=== PATIENT | female | born 1990 | race Caucasian/White ===

== ENCOUNTER 2022-01-02 16:00 | Outpatient (RCR) | payer OTHER, SELFPAY | END 2022-01-02 16:05 | disposition home or self-care (01) | LOC: PT 16:00 | PROVIDERS: PCP Family Medicine; Visit Provider Physician Assistant | DX: M43.10 Spondylolisthesis, site unspecified (principal); M54.50 Low back pain, unspecified | CPT/HCPCS: 97010; 97014; 97033; 97110; 97140; 97163; 97164; G0283 ==

== ENCOUNTER 2022-04-23 10:43 | Emergency (ER) | payer OTHER, SELFPAY ==
[2022-04-23 11:35] VITALS: BP 121/74; PULSE 84; RESP 20; TEMP 37; O2SAT 97; BMI 30.1
--- NOTE | 2022-04-23 11:49 | EXP.UTC ---
Discharge Plan Disposition Patient Disposition: Home, Self-Care Condition: Good Prescriptions Prescriptions: New tthuhopzvwkzycz-eojglbgcu-TD [Bromfed DM] 2-30-10 mg/5 mL Syrup 10 ml PO Q4H PRN (Reason: Cough) Qty: 240 0RF ondansetron 4 mg tablet,disintegrating 4 mg PO Q8H PRN (Reason: nausea and vomiting) Qty: 10 0RF oseltamivir [Tamiflu] 75 mg capsule 75 mg PO BID Qty: 10 0RF No Action azithromycin [Zithromax] 250 MG tablet 250 mg PO UD DOSE PK Qty: 6 0RF Rx Instructions: Take two (2) tablets today, then one (1) tablet days #2 thru #5 Referrals Follow up/Referrals: Geovanna Camejo [Primary Care Provider] - See instructions Activity Restrictions/Add. Instructions Additional Instructions/Restrictions: Lots of rest Increase Fluids water, Gatorade, powerade, pedialyte,if infant/toddler/child Alternate Tylenol and / or ibuprofen as discussed for fever, aches, chills Follow up IMMEDIATELY with your family doctor for new or worsening Symptoms OR no noticeable improvement over the next 48-72 hours, 911 for difficulty or breathing You or your child area contagious until no fever, aches, chills for 24 hours with medication for symptoms Help Prevent the spread of influenza: ?Wash your hands often. Use soap and water. Wash your hands after you use the bathroom, change a child's diapers, or sneeze. Wash your hands before you prepare or eat food. Use gel hand cleanser that has 60% alcohol, when soap and water are not available. Do not touch your eyes, nose, or mouth unless you have washed your hands first. Cover your mouth when you sneeze or cough. Cough into a tissue or the bend of your arm. If you use a tissue, throw it away immediately and wash your hands. Clean shared items with a germ-killing cleaner and trimmer. Clean table surfaces, doorknobs, and light switches. Do not share towels, silverware, and dishes with people who are sick. Wash bed sheets, towels, silverware, and dishes with soap and water. Wear a mask over your mouth and nose if you are sick. The face mask may help protect others from becoming infected with the flu. Wear the mask when in common areas of your home or if you seek care with a healthcare provider. Stay away from others if you are sick. Stay at home until 24 hours after your fever and symptoms are gone. Clinical Impressions Clinical Impression: Viral syndrome Instructions Patient Instructions: DI for Influenza -- Adult, DI for Viral Syndrome Discharge ED Provider: Annette Jason [facility] [place] H[place] General Stated complaint: sore throat, body aches, fever, vomiting Time Seen by Provider: 04/23/22 11:49 History of Present Illness Provider Complaint: Patient states that she had to take care of two of her kids last week that had the flu States that she started yesterday with cough, congestion and body aches, chills, and feeling fatigued and had a little N/V States that today she is still feeling bad feeling achy all over so she came in to get checked out Related Data Previous Rx's Medication Instructions Recorded azithromycin 250 mg tablet 250 mg PO UD DOSE PK #6 tabs 08/16/18 (Zithromax) kskcopnzuombjsy-yzzzviryrkvyowm-[place] 10 ml PO Q4H PRN Cough #240 mL 04/23/22 2 mg-30 mg-10 mg/5 mL oral syrup (Bromfed DM) ondansetron 4 mg disintegrating 4 mg PO Q8H PRN nausea and 04/23/22 tablet vomiting #10 tabs oseltamivir 75 mg capsule (Tamiflu) 75 mg PO BID #10 caps 04/23/22 Allergies Allergy/AdvReac Type Severity Reaction Status Date / Time No Known Allergies Allergy Verified 08/16/18 14:55 [facility] Medical History (Updated 04/23/22 @ 12:16 by Annette Jason, SPECTRAL SCIENTIST) Anxiety Asthma Migraine Surgical History (Updated 04/23/22 @ 11:55 by Gisel Sparks RN) History of tubal ligation Social History (Updated 04/23/22 @ 11:58 by
[2022-04-23 12:10] VITALS: BP 121/74; PULSE 84; RESP 20; TEMP 37; O2SAT 97
== END 2022-04-23 12:27 | disposition home or self-care (01) ==
PROVIDERS: Emergency Provider Nurse Practitioner; PCP Family Medicine
DX: J02.9 Acute pharyngitis, unspecified (principal); R50.9 Fever, unspecified; M79.10 Myalgia, unspecified site; R11.2 Nausea with vomiting, unspecified; R05.9 Cough, unspecified; R53.82 Chronic fatigue, unspecified; G43.909 Migraine, unspecified, not intractable, without status migrainosus; J45.909 Unspecified asthma, uncomplicated; F41.9 Anxiety disorder, unspecified; Z79.899 Other long term (current) drug therapy
CPT/HCPCS: 99212; G0463

== ENCOUNTER 2022-09-21 07:52 | Emergency (ER) | payer OTHER, SELFPAY ==
[2022-09-21] VITALS (9 sets, daily range): BP systolic 94–141; BP diastolic 61–99; PULSE 60–99; RESP 16–20; TEMP 36.8; O2SAT 97–98; BMI 28.8
--- NOTE | 2022-09-21 08:01 | PC.NURSE ---
dr gupta at bedside
--- NOTE | 2022-09-21 08:04 | CT_ITS ---
PROCEDURE INFORMATION: Exam: CT Abdomen And Pelvis Without Contrast Exam date and time: 09/21/2022 8:18 AM Age: 32 years old Clinical indication: Abdominal pain; Flank; Right; Additional info: RT flank pain TECHNIQUE: Imaging protocol: Computed tomography of the abdomen and pelvis without contrast. Radiation optimization: All CT scans at this facility use at least one of these dose optimization techniques: automated exposure control; mA and/or kV adjustment per patient size (includes targeted exams where dose is matched to clinical indication); or iterative reconstruction. REPORTING DATA: Count of CT and Cardiac NM exams in prior 12 months: This patient has received 0 known CTs and 0 known cardiac nuclear medicine studies in the 12 months prior to the current study. COMPARISON: No relevant prior studies available. FINDINGS: Lungs: No consolidation, lung nodules, or pleural effusions. Liver: Normal. No mass. Gallbladder and bile ducts: Calcified gallstones up to 1.4 cm in diameter. No gallbladder wall thickening, luminal distention, or biliary ductal dilatation. Pancreas: Normal. No ductal dilation. Spleen: Normal. No splenomegaly. Adrenal glands: Normal. No mass. Kidneys and ureters: 3-4 mm stone in the distal right ureter near the ureterovesical junction causes mild hydroureteronephrosis. No other right kidney stones. Nonobstructing 2 mm stone in the lower pole left kidney. No solid renal masses. Stomach and bowel: Normal. No intestinal masses, bowel wall thickening, or abnormal dilatation. Appendix: No evidence of appendicitis. Intraperitoneal space: No free air. No masses or significant fluid collection. Vasculature: No abdominal aortic aneurysm. No other significant abnormalities. Lymph nodes: No enlarged lymph nodes. Urinary bladder: No significant wall thickening. Reproductive: No abnormalities as visualized. Bones/joints: No acute fracture or bone lesions. Soft tissues: No masses or other abnormalities. IMPRESSION: 1. Obstructing 3 mm stone in the distal right ureter within 2 cm of the ureterovesical junction. 2. 2 mm nonobstructing stone in the lower pole left kidney. 3. Cholelithiasis. No biliary ductal dilatation. 4. No other acute abnormalities in the abdomen and pelvis.
--- NOTE | 2022-09-21 08:06 | HMH.EDABDPAI ---
Discharge Plan Disposition Patient Disposition: Home, Self-Care Prescriptions Prescriptions: New ketorolac 10 mg Tablet 10 mg PO Q6H PRN (Reason: pain.) Qty: 8 0RF dicyclomine 10 mg capsule 10 mg PO QID PRN (Reason: pain) Qty: 20 0RF Referrals Follow up/Referrals: Geovanna Camejo [Primary Care Provider] - See instructions Joey Aguilar MD [Staff Physician] - 7-14 days (3 mm distal right ureteral stone) Activity Restrictions/Add. Instructions Additional Instructions/Restrictions: Your work-up today showed that you have a kidney stone in your ureter on the right side. This kidney stone is causing your your pain. Incidentally, you also have gallstones. The gallbladder does not seem inflamed and the stones do not seem to be causing you any symptoms at this time. 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 You have also been given a urine strainer which you should use every time you void. Please take the stone to your primary care physician for lab analysis once you have passed it. Return immediately to the emergency department if you develop a fever or if your symptoms worsen in any way. You may follow-up with Dr. Aguilar, a urologist, if your symptoms do not improve within the next few days. You have a very high likelihood of passing the stone without any intervention. It is 3 mm in size. Clinical Impressions Clinical Impression: Ureterolithiasis Cholelithiasis Qualifiers: Cholelithiasis location: gallbladder Cholecystitis presence: without cholecystitis Biliary obstruction: without biliary obstruction Qualified Code(s): K80.20 - Calculus of gallbladder without cholecystitis without obstruction Instructions Patient Instructions: DI for Kidney Stones Discharge ED Provider: Hellen Daniel Abdominal Pain HPI General Chief Complaint: Abdominal Pain Stated Complaint: Abd pain on right side and back, Nausea,Vomitting Time Seen by Provider: 09/21/22 08:04 Mode of Arrival: Ambulatory Limitations: No Limitations Description of Symptoms (Recalled from ER Triage Doc. by RN): PT REPORTS RIGHT SIDED BACK THAT RADIATES TO UMBILICUS. STARTED THIS AM. WOKE UP AND WAS ABLE TO VOID, UNABLE TO VOID AT THIS TIME. PAIN STARTED AFTER VOIDING THIS AM History of Present Illness HPI narrative: The patient presents to the emergency department complaining of right flank pain with the urge of urination and 1 episode of vomiting. This was sudden onset. The patient has no history of kidney stones. She has had a tubal ligation 9 years ago. MD complaint: flank pain Related Data Previous Rx's Medication Instructions Recorded dicyclomine 10 mg capsule 10 mg PO QID PRN pain #20 caps 09/21/22 ketorolac 10 mg tablet 10 mg PO Q6H PRN pain. #8 tabs 09/21/22 Allergies Allergy/AdvReac Type Severity Reaction Status Date / Time No Known Allergies [facility]18 [facility] Disclaimer[facility] The information contained in this section may have been updated after the patient was seen, as this information can be updated by other users. Medical History (Updated 09/21/22 @ 11:23 by Hellen Daniel MD) Anxiety Asthma Migraine Surgical History (Updated 04/23/22 @ 11:55 by Gisel Sparks RN) History of tubal ligation Social History (Updated 04/23/22 @ 11:58 by Gisel Sparks RN) Smoking Status: Former smoker alcohol intake: never current occupational status: other Travel in the last 8 weeks: None ROS Obtained: Yes All systems reviewed & no additional complaints except as documented Physical Exam General General appearance: alert Head Head exam: atraumatic Eye Eye exam: Present normal appearance; Absent scleral icterus or jaundice ENT ENT exam: Present normal exam Neck Neck exam: Present normal inspection and full ROM; Absent tenderness or meningismus Chest Chest inspection: Present normal inspection and symmetric chest wall rise; Absent tenderness Respirator
--- NOTE | 2022-09-21 08:07 | PC.NURSE ---
RADIOLOGY NOTICED OF CT SCAN
--- NOTE | 2022-09-21 08:08 | PC.NURSE ---
PT ASSISTED TO BATHROOM
[2022-09-21 08:10] LABS: Basophils # 0.1 K/mm3 (0-0.2); Basophils % 0.7 % (0.1-2.0); Eosinophils # 0.3 K/mm3 (0.0-0.4); Hematocrit 41.8 % (37.0-47.0); Hemoglobin 13.7 g/dL (12.2-16.2); Lymphocytes # 2.6 K/mm3 (0.7-4.5); Lymphocytes % 28.5 % (10-50); Mean Corpuscular HGB Conc 32.7 g/dL (31.8-35.4); Mean Corpuscular Hemoglobin 29.2 pg (27.0-31.2); Mean Corpuscular Volume 89.4 fl (81-99); Mean Platelet Volume 7.3 fl (7.4-10.4); Monocytes # 0.3 K/mm3 (0.1-1.0); Monocytes % 3.4 % (1.7-9.3); Neutrophils % 64.4 % (37.0-80.0); Platelet Count 384 K/mm3 (142-424); Red Blood Count 4.67 M/mm3 (4.20-5.40); Red Cell Distribution Width 13.4 % (11.5-17.5); White Blood Count 9.3 K/mm3 (4.8-10.8)
[2022-09-21 08:12] LABS: Chloride 105 mmol/L (98-107); Sodium 140 mmol/L (136-145)
[2022-09-21 08:13] LABS: Potassium 4.1 mmoL/L (3.5-5.1)
[2022-09-21 08:14] LABS: Microscopic, Urine URINE MICROSCOPIC (MICROSCOPIC)
[2022-09-21 08:15] LABS: Alanine Aminotransferase 19 U/L (12-78); Albumin Level 4.7 g/dl (3.5-5.0); Albumin/Globulin Ratio 1.4 (1.1-1.8); Alkaline Phosphatase 75 U/L (38-126); Anion Gap 12.1 mEq/L (5-15); Aspartate Amino Transferase 33 U/L (14-36); Bilirubin,Total 0.4 mg/dl (0.2-1.3); Blood Urea Nitrogen 18 mg/dl (7-17); Calcium 9.2 mg/dl (8.4-10.2); Carbon Dioxide 27 mmol/L (22.0-30.0); Creatinine Clearance Estimated 106 mL/min (50-200); Estimated Glomerular Filt Rate 72 ml/min (>60); GFR (African American) 87 ML/MIN (>60); Globulin 3.3 g/dL (1.3-3.2); Glucose 123 mg/dl (74-100); Lipase 141 U/L (23-300)
--- NOTE | 2022-09-21 08:15 | PC.NURSE ---
PT TO CT
[2022-09-21 08:16] LABS: Appearance,Urine SL CLOUDY (Clear); Bilirubin,Urine Negative (Negative); Blood, Urine 3+ (Negative); Color,Urine YELLOW (Yellow); Glucose,Urine (UA) Negative (Negative); Ketones,Urine Negative (Negative); Leukocyte Esterase,Urine TRACE (Negative); Nitrate,Urine Negative (Negative); PH,Urine 5.5 (5.0-8.5); Protein,Urine TRACE (Negative); Specific Gravity, Urine >= 1.030 (1.005-1.030); Urobilinogen,Urine 0.2 EU/dl (0.2)
--- NOTE | 2022-09-21 08:22 | PC.NURSE ---
PT RETURNED FROM CT
[2022-09-21 08:26] LABS: Bacteria,Urine Trace /lpf; RBC,Urine Occasional #/hpf (0-3); WBC,Urine Occasional #/hpf (0-3)
--- NOTE | 2022-09-21 08:29 | PC.NURSE ---
EL Perez rounded on patient, call light w/in reach. warm blankets given.
--- NOTE | 2022-09-21 08:46 | PC.NURSE ---
DR CARABALLO AT BEDSIDE TO REEVALUATE PT
--- NOTE | 2022-09-21 09:53 | PC.NURSE ---
waiting data center consultant back from rad staff, states will check on status of pt ct result
--- NOTE | 2022-09-21 10:01 | PC.NURSE ---
rad staff reports scan is assigned but she chatted with vrad staff who report turn around time is 172 minutes. ER MD is aware.
--- NOTE | 2022-09-21 10:01 | PC.NURSE ---
DR CARABALLO AT BEDSIDE TO UPDATE PT
--- NOTE | 2022-09-21 10:09 | PC.NURSE ---
Rounded on patient; call light within reach
--- NOTE | 2022-09-21 11:12 | PC.NURSE ---
DR CARABALLO AT BEDSIDE TO UPDATE PT
== END 2022-09-21 11:38 | disposition home or self-care (01) ==
PROVIDERS: Emergency Provider Emergency Medicine; PCP Family Medicine
DX: K80.20 Calculus of gallbladder without cholecystitis without obstruction (principal); N20.2 Calculus of kidney with calculus of ureter
CPT/HCPCS: 74176; 80053; 81001; 83690; 85025; 96372; 96374; 96375; 99285; J2405

== ENCOUNTER 2023-12-10 11:00 | Outpatient (CLI) | payer OTHER, SELFPAY ==
[2023-12-11 08:13] LABS: Basophils # 0.1 K/mm3 (0-0.2); Basophils % 1.1 % (0.1-2.0); Eosinophils # 0.3 K/mm3 (0.0-0.4); Eosinophils % 3.4 % (0.1-12.0); Hematocrit 40.2 % (37.0-47.0); Hemoglobin 12.5 g/dL (12.2-16.2); Lymphocytes # 3.1 K/mm3 (0.7-4.5); Lymphocytes % 30.3 % (10-50); Mean Corpuscular HGB Conc 31.2 g/dL (31.8-35.4); Mean Corpuscular Hemoglobin 29.7 pg (27.0-31.2); Mean Corpuscular Volume 95.3 fl (81-99); Mean Platelet Volume 9.9 fl (7.4-10.4); Monocytes # 0.5 K/mm3 (0.1-1.0); Neutrophils # 6.1 K/mm3 (1.8-7.8); Neutrophils % 60.2 % (37.0-80.0); Platelet Count 401 K/mm3 (142-424); Red Blood Count 4.22 M/mm3 (4.20-5.40); Red Cell Distribution Width 13.7 % (11.5-17.5); White Blood Count 10.1 K/mm3 (4.8-10.8)
[2023-12-11 09:04] LABS: Alanine Aminotransferase 25 U/L (12-78); Albumin Level 4.9 g/dl (3.5-5.0); Albumin/Globulin Ratio 1.8 (1.1-1.8); Alkaline Phosphatase 70 U/L (38-126); Anion Gap 15.3 mEq/L (5-15); Aspartate Amino Transferase 37 U/L (14-36); Bilirubin,Indirect 0.2 mg/dL (0.0-0.9); Bilirubin,Total 0.2 mg/dl (0.2-1.3); Bilirubin,Unconjugated 0.3 mg/dL (0.0-1.1); Blood Urea Nitrogen 13 mg/dl (7-17); Calcium 9.5 mg/dl (8.4-10.2); Carbon Dioxide 26 mmol/L (22.0-30.0); Chloride 104 mmol/L (98-107); Chol/HDL Ratio 3.3 (1-3.5); Cholesterol 176 mg/dl (140-200); Estimated Glomerular Filt Rate 71 ml/min (>60); GFR (African American) 86 ML/MIN (>60); Globulin 2.8 g/dL (1.3-3.2); HDL Cholesterol 53 mg/dl (40-60); Potassium 4.3 mmoL/L (3.5-5.1); Sodium 141 mmol/L (136-145); Total Protein,Serum 7.7 g/dl (6.3-8.2); Triglycerides 156 mg/dl (30-150); VLDL Cholesterol 31 mg/dL (0-40)
[2023-12-11 09:08] LABS: Glucose 46 mg/dl (74-100)
[2023-12-11 09:15] LABS: Direct LDL Cholesterol 97.77 mg/dL (100-129)
[2023-12-11 09:33] LABS: Thyroid Stimulating Hormone 1.83 uIU/mL (0.465-4.68)
[2023-12-11 09:54] LABS: Vitamin B12 > 1000 pg/mL (239-931)
== END 2023-12-10 23:59 | disposition home or self-care (01) ==
LOC: LAB.DROPOF 12-15 11:01
PROVIDERS: PCP Family Medicine; Visit Provider Family Medicine
DX: J45.901 Unspecified asthma with (acute) exacerbation (principal)
CPT/HCPCS: 80050; 80053; 80061; 80076; 82248; 82306; 82607; 84443; 85025

== ENCOUNTER 2024-01-13 14:00 | Outpatient (CLI) | payer OTHER, SELFPAY | END 2024-01-13 23:59 | disposition home or self-care (01) | LOC: LAB.DROPOF 01-14 14:11 | PROVIDERS: PCP Nurse Practitioner Family; Visit Provider Nurse Practitioner Family | DX: N39.0 Urinary tract infection, site not specified (principal) | CPT/HCPCS: 87086 ==

== ENCOUNTER 2024-06-15 18:38 | Outpatient (CLI) | payer OTHER, SELFPAY | END 2024-06-15 23:59 | disposition home or self-care (01) | LOC: LAB.DROPOF 18:39 | PROVIDERS: PCP Nurse Practitioner Family; Visit Provider Nurse Practitioner Family | DX: R35.0 Frequency of micturition (principal) | CPT/HCPCS: 87086 ==

== ENCOUNTER 2024-09-05 17:44 | Emergency (ER) | payer OTHER, SELFPAY ==
[2024-09-05 17:45] VITALS: BP 128/78; PULSE 96; RESP 19; TEMP 36.8; O2SAT 98; BMI 27.4
[2024-09-05 18:00] VITALS: BP 128/78; PULSE 101; O2SAT 97
[2024-09-05] MEDS: LIDOCAINE 1% 5ML PF VIAL 5 ML IJ (18:09)
[2024-09-05 18:30] VITALS: BP 126/85
--- NOTE | 2024-09-05 19:04 | HMH.EDGENADL ---
Discharge Plan Disposition Patient Disposition: Home, Self-Care Condition: Good Prescriptions Prescriptions: No Action albuterol sulfate 90 mcg/actuation aero powdr breath act w/sensor 2 inh inhalation Q6H PRN (Reason: sob) Qty: 1 2RF Referrals Follow up/Referrals: Geovanna Lynch MD [Primary Care Provider] - See instructions Activity Restrictions/Add. Instructions Additional Instructions/Restrictions: You were seen for a finger laceration. Have your sutures removed in 10 days. Return to the ED if you have any redness or discharge. Clinical Impressions Clinical Impression: Finger laceration Instructions Patient Instructions: DI for Laceration Repair Print Language Print Language: Barbadian Discharge ED Provider: Michael Riddle General Adult HPI <JOESPH Posada - Last Filed: 09/05/24 19:22> General Chief complaint: Wound/Laceration Stated complaint: AO 4-6 left middle finger cut with slicer Time Seen by Provider: 09/05/24 17:47 Mode of Arrival: Family Vehicle Source of Information: Patient and Medical Record Description of Symptoms (Recalled from ER Triage Doc. by RN): Pt presents to ER with small lacertation to tip of left middle finger from a slicer. States she was cooking dinner and slicing ingredients when she caught the tip of her finger. She washed the site, applied a pressure bandage but it has continued to bleed steadily. She is UTD with TDAP. History of Present Illness HPI narrative: Patient presents complaining of a laceration to her left third finger. She reports that she was using a mandolin slicer to cut some carrots and cut her finger. She reports that there is a laceration that will not stop bleeding despite pressure and bandaging. Tetanus UTD complaint: laceration Onset (ago): hour(s) (1630) Location: left and upper extremity Radiation: non-radiation Severity: mild Consistency: constant Relieving factors: none Exacerbating factors: none Associated symptoms: negative fever/chills or nausea/vomiting Related Data Previous Rx's ?Medication ?Instructions ?Recorded albuterol sulfate 90 mcg/actuation 2 inh inhalation Q6H PRN sob #1 ea 08/23/24 breath activated powder inhaler,sensor Allergies Allergy/AdvReac Type Severity Reaction Status Date / Time No Known Allergies Allergy Verified 06/15/24 15:10 PFSH <JOESPH Posada - Last Filed: 09/05/24 19:22> [facility] Disclaimer: The information contained in this section may have been updated after the patient was seen, as this information can be updated by other users. Medical History (Updated 09/05/24 @ 19:04 by JOESPH Posada) Anxiety Migraine Asthma Surgical History History of tubal ligation Social History Smoking Status: Current every day smoker alcohol intake: never current occupational status: other Travel in the last 8 weeks: None Have you lived/traveled outside [place] in past 30 days?: No Contact w/someone who lives/traveled outside US past 30 days?: No Exposure to someone with infectious disease in past 14 days?: No Do you have a fever (greater than 100.4 F or 38 C)?: No Have you tested positive for COVID-19: No Exposed to someone with COVID-19 in past 14 days?: No Do you have a sore throat?: No Do you have a cough?: No Do you have any weakness?: No Do you have any diarrhea?: No Are you experiencing any unusual bleeding?: No Do you have any muscle aches/pain?: No Do you have any abdominal pain?: No Are you experiencing loss of taste or smell?: No Other Medical History Have you received the Flu Vaccine for this season: No Have you received the Pneumonia Vaccine: No <JOESPH Posada - Last Filed: 09/05/24 19:22> ROS Obtained: Yes Systems reviewed as appropriate & no additional complaints except as documented Physical Exam <JOESPH Posada - Last Filed: 09/05/24 19:22> General General appearance: alert and in no apparent distress Head Head exam: atraumatic and normocephalic Eye Eye exam: Present normal appearance and EOMI Chest Chest inspection: Present symmetric chest wall rise Respiratory Respiratory exam: Present normal lung sounds bilaterally; Absent wheezes or stridor Cardiovascular Cardiovascular exam: Present regular rate and normal rhythm; Absent systolic murmur Extremities Exam Extremities exam: Present full ROM Neurological Exam Neurological exam: Present alert and oriented X3 Psychiatric Psychiatric exam: Present normal affect and normal mood Skin Skin exam: Present warm, dry and other (1 cm curved laceration to the left 3rd fingerpad ) Medical Decision Making <JOESPH Posada - Last Filed: 09/05/24 19:22> Medical Records Screening: Per USPSTF and CDC recommendations, given the prevalence of disease in our region, it is our hospital?s policy to screen for HIV and viral Hepatitis for all patients aged 18 and over and those with ongoing risk factors. Marshal Inquiry Pt receiving controlled substance: No Vital Signs: 09/05/24 17:45 09/05/24 18:00 09/05/24 18:30 Temperature 98.2 F Temperature Source Oral Pulse Rate 101 H Pulse Rate [Right] 96 H Respiratory Rate 19 Blood Pressure 128/78 126/85 Blood Pressure [Right Arm] 128/78 Blood Pressure Mean 94 93 Blood Pressure Mean [Right Arm] 94 Blood Pressure Source Blood Pressure Source [Right Arm] Automatic Cuff Blood Pressure Position 02 Sat by Pulse Oximetry 98 97 Oxygen Delivery Method Room Air Room Air 09/05/24 19:05 Temperature 98.2 F Temperature Source Oral Pulse Rate 100 H Pulse Rate [Right] Respiratory Rate 20 Blood Pressure 139/87 Blood Pressure [Right Arm] Blood Pressure Mean Blood Pressure Mean [Right Arm] Blood Pressure Source Automatic Cuff Blood Pressure Source [Right Arm] Blood Pressure Position Sitting 02 Sat by Pulse Oximetry Oxygen Delivery Method Room Air Orders (Tests/Meds): ED MEDICATIONS Discontinued Medications Generic Name Dose Route Start Last Admin Trade Name Freq PRN Reason Stop Dose Admin Lidocaine HCl 5 ml 09/05/24 17:56 09/05/24 18:09 Lidocaine 1% 5ml Pf Vial IJ 09/05/24 17:57 5 ml ONCE ONE Administration Medical Decision Narrative: In summary patient is a 34-year-old who presents the emergency department for evaluation of finger laceration. Patient is hemodynamically upon arrival, afebrile. 1 cm laceration to the left third finger, active bleeding. Bleeding controlled with a finger soaked using lidocaine with epinephrine. Wound was cleaned and irrigated and closed with 5 sutures. Follow-up if symptoms return, have PCP remove sutures. <Michael Riddle MD - Last Filed: 09/05/24 20:44> Vital Signs: 09/05/24 17:45 09/05/24 18:00 09/05/24 18:30 Temperature 98.2 F Temperature Source Oral Pulse Rate 101 H Pulse Rate [Right] 96 H Respiratory Rate 19 Blood Pressure 128/78 126/85 Blood Pressure [Right Arm] 128/78 Blood Pressure Mean 94 93 Blood Pressure Mean [Right Arm] 94 Blood Pressure Source Blood Pressure Source [Right Arm] Automatic Cuff Blood Pressure Position 02 Sat by Pulse Oximetry 98 97 Oxygen Delivery Method Room Air Room Air 09/05/24 19:05 Temperature 98.2 F Temperature Source Oral Pulse Rate 100 H Pulse Rate [Right] Respiratory Rate 20 Blood Pressure 139/87 Blood Pressure [Right Arm] Blood Pressure Mean Blood Pressure Mean [Right Arm] Blood Pressure Source Automatic Cuff Blood Pressure Source [Right Arm] Blood Pressure Position Sitting 02 Sat by Pulse Oximetry Oxygen Delivery Method Room Air Orders (Tests/Meds): ED MEDICATIONS Discontinued Medications Generic Name Dose Route Start Last Admin Trade Name Nuvia PRN Reason Stop Dose Admin Lidocaine HCl 5 ml 09/05/24 17:56 09/05/24 18:09 Lidocaine 1% 5ml Pf Vial IJ 09/05/24 17:57 5 ml ONCE ONE Administration Medical Decision Narrative: In summary patient is a 34-year-old who presents the emergency department for evaluation of finger laceration. Patient is hemodynamically upon arrival, afebrile. 1 cm laceration to the left third finger, active bleeding. Bleeding controlled with a finger soaked using lidocaine with epinephrine. Wound was cleaned and irrigated and closed with 5 sutures. Follow-up if symptoms return, have PCP remove sutures. I was consulted by the SUN[facility], and we discussed the complexity of the problems being addressed. I approved the treatment and management plan for this patient's care in the Emergency Department, thus performing a substantive portion of the medical decision making. Michael Riddle MD Procedures <JOESPH Posada - Last Filed: 09/05/24 19:22> Laceration Laceration 1: Site: finger Side (If applicable): left Size (cm): 1 Description: flap Depth: simple, single layer Local Anesthetic: lidocaine 1% (digital block ) and with epi (soak) Amount of anesthesia used (mL): 1 Pre-repair: irrigated extensively Skin layer closed with: nylon Size (cm): 5-0 Number of sutures: 4 Technique: simple, interrupted Critical Care <JOESPH Posada - Last Filed: 09/05/24 19:22> Critical Care Time Critical Care Time: No
[2024-09-05 19:05] VITALS: BP 139/87; PULSE 100; RESP 20; TEMP 36.8; O2SAT 97
--- OUTSIDE RECORDS SUMMARY | 2024-09-09 20:03 | XMS_ITS | Data Portability ---
Author Organization DANDRE [facility] & SATHISH Felix ADMIN Address [address] [place] [address] Care Team Providers Care Alum Mixer Name Role Phone SHIRLEY COSME Family Medicine SHIRLEY ARREOLA Primary Care Provider [phone] Assessment No assessment recorded. Plan of Treatment Reminders Order Date Submit Date Provider Last Modified By Organization Details Last Modified Time Details Appointments OV EST 30 2024 03:30P M Shirley Arreola MD Not available Not available Not available Lab None recorded. Referral dermatolo gist referral 2023 024 [email or web address] [facility], [address] [place] [address], [id number], 03/08/2024 12:04:08 Procedures None recorded. Surgeries None recorded. Imaging None recorded. Medication Orders Bactrim DS 800 mg-160 mg tablet 2023 024 [facility] 591, [address], [address], 02/03/2024 15:41:19 mupirocin 2 % topical ointment 2023 024 [facility] 591, [address] [place] [address], [address], 02/03/2024 15:41:21 Patient TargetsNo targets recorded. Patient InstructionsNo instructions recorded. 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 [email or web address] Not Available 02/03 13:09:48 Result Notes None recorded. Procedures Surgical History Date Name Laterality Status Provider Name and Address Organization Details Recorded Time 07/03/19 22 colonoscopy completed Lila Jocelynn [place] - [facility] - [place] & [place] 11/27/2022 10:23:19 06/02/19 21 Colonoscopy completed Octavia Kassie [place] - [facility] & [place] 02/03/2024 15:13:18 06/02/19 18 Dilation and curettage completed Lila Jocelynn [place] - [facility] & [place] 11/27/2022 10:22:58 06/02/19 14 ligation of fallopian tube completed Lila Jocelynn [place] - [facility] & [place] 11/27/2022 10:22:39 06/02/19 10 LEEP completed Lila Jocelynn [place] [facility] & [place] 11/27/2022 10:22:28 Oral surgery procedure completed Lial Jocelynn [place] - [facility] - [place] & [place] 11/27/2022 10:22:17 Imaging Results Imaging Date Name Status LastModified by Organiz ation Details LastModified Time 09/21/2022 CT, abdomen + pelvis, w/o contrast completed [email or web address] Information not available 02/04/2024 13:09:48 Procedure Notes None recorded. Medical Equipment None Reported. Allergies Allergen ID Allergen Name Allergen Category Reaction Reaction Severity Criticality Documentation Date Start Date Code Code System Note Provider Name and Address Organization Details Recorded Time 36919 No known allergy (situatio n) Not available Not available Not available Not available 11/27/2022 95256 6003 SNOMED Lila Jocelynn [place], [place] - [facility] - [place] & [place] 10:19:04 No known drug allergies Medications Name Sig Start Date Stop Date Status Note LastModified by Organization Details LastModified Time amoxicillin 500 mg capsule TAKE 1 CAPSULE BY MOUTH THREE TIMES DAILY 01/31 completed Not Available Not Available Not Available sulfamethox azole 400 mg-trimetho prim 80 mg tablet 01/31 completed Not Available Not Available Not Available sulfamethox azole 800 mg-trimetho prim 160 mg tablet TAKE 1 TABLET BY MOUTH EVERY 12 HOURS FOR 10 DAYS active Not Available Not Available No t Available ketorolac 10 mg tablet TAKE 1 TABLET BY MOUTH EVERY 6 HOURS NEEDED FOR PAIN 01/31 completed Not Available Not Available Not Available oseltamivir 75 mg capsule TAKE 1 CAPSULE BY MOUTH TWICE DAILY FOR 5 DAYS 01/31 completed Not Available Not Available Not Available acyclovir 200 mg capsule TAKE 5 CAPSULES BY MOUTH PER DAY FOR 5 DAYS 01/31 completed Not Available Not Available Not Available mupirocin 2 % topical ointment APPLY OINTMENT TOPICALLY TO AFFECTED AREA THREE TIMES DAILY active Not Available Not Available No t Available bromphenira mine-pseudo ephedrine-D M 2 mg-30 mg-10 mg/5 mL oral syrup TAKE 10 ML BY MOUTH EVERY 4 HOURS NEEDED FOR COUGH 01/31 completed Not Available Not Available Not Available ondansetron 4 mg disintegrat ing tablet DISSOLVE 1 TABLET IN MOUTH EVERY 8 HOURS NEEDED FOR NAUSEA AND VOMITING 01/31 completed Not Available Not Available Not Available dicyclomine 10 mg capsule TAKE 1 CAPSULE BY MOUTH 4 TIMES DAILY NEEDED FOR PAIN 01/31 completed Not Available Not Available Not Available nitrofurant oin monohydrate /macrocryst als 100 mg capsule TAKE 1 CAPSULE BY MOUTH TWICE DAILY MUST ADMINISTE R WITH A MEAL/FOOD 01/31 completed Not Available Not Available Not Available ProAir HFA 90 mcg/actuati on aerosol inhaler INHALE 2 PUFFS BY MOUTH EVERY 4 HOURS NEEDED active Not Available Not Available No t Available Vitals Date Recorded Body weight Body temperature Oxygen saturation Oxygen saturation in Arterial blood by Pulse oximetry Heart rate Systolic blood pressure Diastolic blood pressure Provider Name and Address Organization Details Last Updated DateTime 4 13367.1 1 g 98.2 [degF] 99 % 99 % 72.02 /min 132 mm[Hg] 90 mm[Hg] [facility] [place] 4 15:18:11 Social History Question Answer Notes LastModified by Organizat ion Details LastModified Time Tobacco Smoking Status Former Smoker Lila Cabezas [facility], [place] - [facility] & [place] 11/27/2022 10:21:16 Do You Have An Advance Directive? No [email or web address] Information not available 02/03/2024 What Is Your Level Of Alcohol Consumption? None Information not available 11/27/2022 Are You Blind Or Do You Have Difficulty Seeing? No [email or web address] Information not available 02/03/2024 What Was The Date Of Your Most Recent Tobacco Screening? 02/01/2024 [email or web address] Information not available 02/03/2024 Do You Feel Stressed (tense, Restless, Nervous, Or Anxious, Or Unable To Sleep At Night)? [id number] [email or web address] Information not available 02/03/2024 Do You Use Any Illicit Or Recreational Drugs? No Information not available 11/27/2022 Sex: Female Functional Status Question Answer Note LastModified by Organizat ion Details LastModified Time What is your exercise level? Occasional [email or web address] Information not available 02/03/2024 Mental Status None recorded. Family History Relationship Description Onset Age of this Age Resolved Age Notes LastModified by Organization Details LastModified Time Mother Hypertensive disorder Not available 11/27 10:20:30 Mother Diabetes mellitus [email or web address] Not available 08/2023 15:12:19 Mother Gastroesopha geal reflux disease pt. added direct ly (01/31) [email or web address] Not available 02/01/2024 10:48:51 Father Chronic obstructive pulmonary disease Not available 11/27 10:20:45 Father Malignant tumor of breast [email or web address] Not available 08/2023 15:12:19 Brother Hypoglycemia [email or web address] Not a vailable 02/03/2024 15:12:19 Medical History Condition Response GI Problems Y Spine Problems Y Vision or Eye Problems Y Back Problems Y Headaches Y Gynecological HistoryNo gynecological history recorded. Obstetrics History GPAL:G 0 P 0 0 0 0 Immunizations Vaccine Type Date Status Note Provider Nam e and Address Organization Details Recorded Time COVID-19, mRNA, LNP-S, PF, 100 mcg/0.5mL dose or 50 mcg/0.25mL dose 04/06/2021 completed Octavia Kassie [facility] - [place] & [place] 02/03/2024 15:13:25 Tdap 09/01/2019 completed Octavia Kassie D[facility]RE [facility] - [place] & [place] 02/03/2024 15:13:25 Past Encounters Encounter ID Performer Location Encounter Start Date Encounter Closed Date Diagnosis/Indication Diagnosis SNOMED-CT Code Diagnosis ICD10 Code Diagnosis Note [id number] Shirley Arreola MD [facility] - [place] [address] [place] [address] 02/03/2024 15:11:37 02/03/2024 15:37:26 Folliculitis 64159701 L73.9 pt requests referral to derm for secondary consult as she is worried about progressio ndiscussed that presently lesions are not consistent with HS and we can try a round of oral abx with topical spot treatment and twice weekly cleanses with chlorhexad ine, remove all loofas/vesna wer sponges, etc, use only clean wash cloth and wash between use. Discussed acidified body wash such as lume for exfoliatio nwe discussed potential triggers such as detergents , type of clothing, clogged pores/glan ds, dietary sensitivit ies and hormonal factorspt encouraged to f/u if not improving Health Concerns Section Related Observation LastModified by Organization Detai ls LastModified Time None Recorded Concern Status LastModified by Organization Details LastModified Time None Recorded Advance Directives Directive N: Payers Encounter Date Sequence Insurance Name Policy Number Policy Mcnally Covered Member ID Mcnally Member ID Guarantor Name 02/03/2024 1 [employer] [facility] (MEDICAID HMO) Mi Granda [id number] Mi Granda Notes Date Note Type Note Provider Name and Address Organization Details Recorded Time 02/03/2024 text/html She notes that with recent weight gain she has and increase in skin lesions at skin folds in the groin, gluteal cleft. She doesn't think it related to hair follicles. She is concerned about possible HS. She has had them in the axillary region and under the breasts in the past. She does occasionally have drainage from the lesions. She only has these in warmer weather. She has had some recent increase in sx with relation to her menstrual cycle which are irregular in frequency but consistent in duration at about 3-4 days. Shirley Arreola MD [address], [place], [address], [facility] [place] 02/03/2024 15:43:32 OBGyn Episode No OBEpisode recorded.
== END 2024-09-05 19:09 | disposition home or self-care (01) ==
PROVIDERS: Emergency Provider Emergency Medicine; PCP Family Medicine
DX: S61.213A Laceration without foreign body of left middle finger without damage to nail, initial encounter (principal); Z72.0 Tobacco use; W26.0XXA Contact with knife, initial encounter; Y93.89 Activity, other specified; Y92.000 Kitchen of unspecified non-institutional (private) residence as the place of occurrence of the external cause
CPT/HCPCS: 12001; 99283

== ENCOUNTER 2024-10-27 12:09 | Outpatient (CLI) | payer OTHER, SELFPAY ==
--- OUTSIDE RECORDS SUMMARY | 2024-10-27 12:11 | XMS_ITS | Continuity of Care Document ---
Author Organization [place] - [facility] [place] Address [address] [place] [address] Care Team Providers Care Warehouse Stock Clerk Name Role Phone SHIRLEY COSME Family Medicine SHIRLEY ARREOLA Primary Care Provider Assessment Encounter Date Assessment Date Assessment LastModified by Organization Details LastModified Time 10/20/2024 10/20/2024 Patient will plan to schedule Pap smear with gynecology to establish given her history of prior LEEP and D& C. Trial of air supra, we will discuss pulmonary function tests at follow-up. Trial of Wellbutrin, continue trazodone for mood. Prescription sent for omeprazole, discussed potential triggering factors including dietary choices, alcohol and smoking. Patient is working on making changes but not able to completely dig into this at this time. [email or web address] Not available 10/20/2024 16:41:09 Plan of Treatment Reminders Order Date Submit Date Provider Last Modified By Organization Details Last Modified Time Details Appointments OV EST 15 2024 04:15P Crispin Arreola MD Not available Not available Not available Lab lipid panel, serum 2024 025 [employer] [facility] [address] [facility], [place], [address], 10/27/2024 08:13:32 cobalamin and folate panel, serum 2024 025 [email or web address] [facility] ([place]), [address] [facility], [place], [address], 10/27/2024 08:13:32 vitamin D, 25-hydrox y, total, serum [address]), [address] [place], [address], 10/27/2024 08:13:32 iron + total iron-bind ing capacity (TIBC), serum [address]), [address] [place], [address], 10/27/2024 08:13:33 magnesium , serum or plasma [address]), [address] [place], [address], 10/27/2024 08:13:33 thyroid panel, serum [address]), [address] [place], [address], 10/27/2024 08:13:33 HbA1c (hemoglob in A1c), blood [address]), [address] [place], [address], 10/27/2024 08:13:32 Referral None recorded. Procedures None recorded. Surgeries None recorded. Imaging MAMMO, screening , bilateral 2024 [id number] [facility] [address] [facility], [place], [address], 10/22/2024 10:27:01 Medication Orders trazodone 50 mg tablet 2024 025 [facility] 591, [address], [address], 10/20/2024 16:32:49 omeprazol e 40 mg capsule,d elayed release 2024 025 [facility] 591, [address], [address], 10/20/2024 16:32:54 bupropion HCl XL 150 mg 24 hr tablet, extended release 2024 025 [facility] 591, [address], [address], 10/20/2024 16:32:54 Airsupra 90 mcg-80 mcg/actua tion HFA aerosol inhaler 2024 025 [facility] 591, [address], [address], 10/20/2024 16:32:50 Patient TargetsNo targets recorded. Patient InstructionsNo instructions recorded. Reason for Referral None Reported. Procedures Surgical History Date Name Laterality Status Provider Name and Address Organization Details Recorded Time 07/03/19 22 colonoscopy completed Lila Jocelynn [place] - [facility] & [place] 11/27/2022 10:23:19 06/02/19 21 Colonoscopy completed Octavia [place] - [facility] & [place] 02/03/2024 15:13:18 06/02/19 18 Dilation and curettage completed Lila Jocelynn [place] [facility] & [place] 11/27/2022 10:22:58 06/02/19 14 ligation of fallopian tube completed Lila Jocelynn [place] [facility] - [place] & [place] 11/27/2022 10:22:39 06/02/19 10 LEEP completed Lila Jocelynn [place] [facility] & [place] 11/27/2022 10:22:28 Oral surgery procedure completed Lila Jocelynn [place] [facility] - [place] & [place] 11/27/2022 10:22:17 Imaging Results None recorded. Procedure Notes None recorded. Medical Equipment None Reported. Allergies Allergen ID Allergen Name Allergen Category Reaction Reaction Severity Criticality Documentation Date Start Date Code Code System Note Provider Name and Address Organization Details Recorded Time 52034 No known allergy (situatio n) Not available Not available Not available Not available 11/27/2022 55081 6003 SNOMED Lila Cabezas [facility], [place] - [facility] - [place] & [place] 3 10:19:04 No known drug allergies Medications Name Sig Start Date Stop Date Status Note LastModified by Organization Details LastModified Time amoxicillin 500 mg capsule TAKE 1 CAPSULE BY MOUTH THREE TIMES DAILY 01/31 completed Not Available Not Available Not Available trazodone 50 mg tablet Take 1 tablet every day by oral route for 90 days. 2024 active Not Available Not Available Not Avai lable sulfamethox azole 400 mg-trimetho prim 80 mg tablet 01/31 completed Not Available Not Available Not Available sulfamethox azole 800 mg-trimetho prim 160 mg tablet TAKE 1 TABLET BY MOUTH EVERY 12 HOURS FOR 10 DAYS 10/20 completed Not Available Not Available Not Available omeprazole 40 mg capsule,del ayed release Take 1 capsule every day by oral route for 90 days. 2024 active Not Available Not Available Not Avai lable ketorolac 10 mg tablet TAKE 1 TABLET BY MOUTH EVERY 6 HOURS NEEDED FOR PAIN 01/31 completed Not Available Not Available Not Available benzonatate 100 mg capsule TAKE 1 CAPSULE BY MOUTH THREE TIMES DAILY NEEDED FOR COUGH 10/20 completed Not Available Not Available Not Available [...] TOPICALLY TO AFFECTED AREA THREE TIMES DAILY 10/20 completed Not Available Not Available Not Available bromphenira mine-pseudo ephedrine-D M 2 mg-30 mg-10 mg/5 mL oral syrup TAKE 10 ML BY MOUTH EVERY 4 HOURS NEEDED FOR COUGH 01/31 completed Not Available Not Available Not Available ondansetron 4 mg disintegrat ing tablet DISSOLVE 1 TABLET IN MOUTH EVERY 8 HOURS NEEDED FOR NAUSEA AND VOMITING 10/20 completed Not Available Not Available Not Available dicyclomine 10 mg capsule TAKE 1 CAPSULE BY MOUTH 4 TIMES DAILY NEEDED FOR PAIN 01/31 completed Not Available Not Available Not Available Ventolin HFA 90 mcg/actuati on aerosol inhaler INHALE 2 PUFFS BY MOUTH EVERY 6 HOURS NEEDED FOR SHORTNESS OF BREATH active Not Available Not Available No t Available bupropion HCl XL 150 mg 24 hr tablet, extended release Take 1 tablet every day by oral route for 90 days. 2024 active Not Available Not Available Not Avai lable nitrofurant oin monohydrate /macrocryst als 100 mg capsule TAKE 1 CAPSULE BY MOUTH TWICE DAILY WITH FOOD / MEAL 10/20 completed Not Available Not Available Not Available trazodone active Not Available Not Kathleen ilable Not Available Airsupra 90 mcg-80 mcg/actuati on HFA aerosol inhaler Inhale 2 inhalatio ns as needed by inhalatio n route. 2024 active Not Available Not Available Not Avai lable Vitals Date Recorded Body height Body mass index (BMI) Body weight Body temperature Oxygen saturation Oxygen saturation in Arterial blood by Pulse oximetry Heart rate Systolic blood pressure Diastolic blood pressure Provider Name and Address Organization Details Last Updated DateTime 5 165.1 cm 28 kg/m2 51139.5 2 g 97.7 [degF] 98 % 98 % 111 /min 132 mm[Hg] 86 mm[Hg] Octavia Fernando [facility] & [place] 15:31:51 Social History Question Answer Notes LastModified by Organizat ion Details LastModified Time Tobacco Smoking Status [facility] [place] 11/27/2022 10:21:16 Do You Have An Advance Directive? No [email or web address] Information not available 02/03/2024 Are You Blind Or Do You Have Difficulty Seeing? No [email or web address] Information not available 02/03/2024 What Was The Date Of Your Most Recent Tobacco Screening? 02/01/2024 [email or web address] Information not available 02/03/2024 Sex: Female Functional Status Question Answer Note LastModified by Organizat ion Details LastModified Time Do you use any illicit or recreational drugs? No Information not available 11/27/2022 What is your level of alcohol consumption? None Information not available 11/27/2022 What is your exercise level? Occasional [email or web address] Information not available 02/03/2024 Mental Status Question Answer Note LastModified by Organization D etails LastModified Time Do you feel stressed (tense, restless, nervous, or anxious, or unable to sleep at night)? [id number] [email or web address] Information not available 02/03/2024 Family History Relationship Description Onset Age of this Age Resolved Age Notes LastModified by Organization Details LastModified Time Mother Hypertensive disorder Not available 11/27 10:20:30 Mother Diabetes mellitus [email or web address] Not available 08/2023 15:12:19 Mother Gastroesopha geal reflux disease pt. added direct ly (01/31) [email or web address] Not available 02/01/2024 10:48:51 Father Chronic obstructive pulmonary disease Not available 11/27 10:20:45 Father Malignant tumor of breast [email or web address] Not available 08/2023 15:12:19 Brother Hypoglycemia [email or web address] Not a vailable 02/03/2024 15:12:19 Medical History Condition Response Spine Problems Y Vision or Eye Problems Y Headaches Y Back Problems Y GI Problems Y Gynecological HistoryNo gynecological history recorded. Obstetrics History GPAL:G 0 P 0 0 0 0 Immunizations Vaccine Type Date Status Note Provider Nam e and Address Organization Details Recorded Time COVID-19, mRNA, LNP-S, PF, 100 mcg/0.5mL dose or 50 mcg/0.25mL dose 04/06/2021 completed DANDRE Fu - [place] & [place] 02/03/2024 15:13:25 Tdap 09/01/2019 DANDRE Fritz - [place] & [place] 02/03/2024 15:13:25 Past Encounters Encounter ID Performer Location Encounter Start Date Encounter Closed Date Diagnosis/Indication Diagnosis SNOMED-CT Code Diagnosis ICD10 Code Diagnosis Note [id number] MD [facility] [place] [address] [place] [id number] 10/20/2024 15:19:22 10/20/2024 16:42:18 Screening mammography 61980567 Z12.31 family hx in mother, discussed MRI General ex amination of patient 389044070 Z00.00 Hyperlipid emia screening 676888238 Z13.220 Diabetes m ellitus screening 728743009 Z13.1 Fatigue 76451996 R53.83 Primary insomnia 0447661 F51.01 Stress 21470754 F43.9 Wheezing 96653978 R06.2 Gastroesop hageal reflux disease 355110387 K21.9 Health Concerns Section Related Observation LastModified by Organization Detai ls LastModified Time None Recorded Concern Status LastModified by Organization Details LastModified Time None Recorded Payers Encounter Date Sequence Insurance Name Policy Number Policy Mcnally Covered Member ID Mcnally Member ID Guarantor Name 10/20/2024 [address] [facility] (MEDICAID HMO) Mi Jesus Alberto [id number] Mi Jesus Alberto Notes Date Note Type Note Provider Name and Address Organization Details Recorded Time 10/20/2024 text/html Patient is here for yearly check up and follow up.Last dental visit: May 2024Last eye exam: Currently due, last exam about 1 year ago Tdap vaccine: 2023Flu vaccine: UTD for seasonCovid vaccine: 1 dose completedShingles vaccine: not yet duePNA vaccine: not yet due mammogram: hx of breast pain due to hormone changes, 2022, + family hx in mother currently in remissionColon cancer screening: no family hx of colon cancer, not yet due for screening, has had EGD and scope about 3 years ago with no acute findingsDexa: not yet due for screening, no family hx of early dxPap smear: more than 3 years ago, WNL at that time. Hx of LEEP smokinppd and has been increased due to stress. She has smoked for about 20 yearsEtoh: 3-4 drinks 3-4 nights a week HLP screening: due for screeningDM Screening: due for screeningHTN screening: mildly elevated today and pt notes its due to stress Diet: struggling with dietary choices due to schedule and stressExercise: limited due to issues with her back from a prior fracture. Safety: pt wears seat belt, has smoke detectors in home, feels safe at home. She has been having a lot of stress and this has affected her sleep. She does feel that her left over trazodone she has been using has helped.She notes that her weight gain has been an issue for her over past couple years. She notes that stress seems to contribute to her appetite as well.She has been having wheezing Nearly daily, felt to be secondary to her smoking. She would like to see about trying an option stronger than her albuterol for this. She has not had pulmonary function tests in the past.she has longstanding acid reflux, currently taking 40 mg of omeprazole with [id number] options. She would like to see about a prescription options for this. She has also been struggling with fatigue. She feels that this is related to stress in her life but would like to look into some labs related to this. Shirley Arreola MD [address] [facility], [place], [address], [facility] [place] - [place] - [place] & [place] 10/20/2024 16:42:00 OBGyn Episode No OBEpisode recorded.
--- OUTSIDE RECORDS SUMMARY | 2024-10-27 12:11 | XMS_ITS | Data Portability ---
Author Organization [place] - [facility] - [place] & SATHISH Felix ADMIN Address [address] [place] [address] Care Team Providers Care Patient Companion Name Role Phone SHIRLEY COSME Family Medicine SHIRLEY ARREOLA Primary Care Provider [phone] Assessment Encounter Date Assessment Date Assessment LastModified [...] available Lab lipid panel, serum 2024 025 SumoSkinny 19 [facility] ([place]), [address] [place], [address], 10/27/2024 08:13:32 cobalamin and folate panel, serum 2024 025 Kelwaymall[place]okion SA 19 [facility] ([place] [address] [place], [address], 10/27/2024 08:13:32 vitamin D, 25-hydrox y, total, serum 2024 025 [place] [address] [facility] ([place]), [address] [place], [address], 10/27/2024 08:13:32 iron + total iron-bind ing capacity (TIBC), serum 2024 025 [place] [address] [facility] ([place] [address] [place], [address], 10/27/2024 08:13:33 magnesium , serum or plasma 2024 025 [place] [address] [facility] ([place] [address] [place], [address], 10/27/2024 08:13:33 thyroid panel, serum 2024 [address] [address] [place], [address], 10/27/2024 08:13:33 HbA1c (hemoglob in A1c), blood 2024 [address]25 [address] ([place]), [address] [place], [address], 10/27/2024 08:13:32 Referral dermatolo gist referral 2023 024 [email or web address] [facility], [address] [place] [address], [address], 03/08/2024 12:04:08 Procedures None recorded. Surgeries None recorded. Imaging MAMMO, screening , bilateral 2024 025 [email or web address] [facility] (Centralized Scheduling), [address] [place], [address], 10/22/2024 10:27:01 Medication Orders trazodone 50 mg tablet 2024 025 [facility], [address], [address], 10/20/2024 16:32:49 omeprazol e 40 mg capsule,d elayed release 2024 025 [facility], [address] [place], [address], 10/20/2024 16:32:54 bupropion HCl XL 150 mg 24 hr tablet, extended release 2024 025 [facility], [address], [address], 10/20/2024 16:32:54 Airsupra 90 mcg-80 mcg/actua tion HFA aerosol inhaler 2024 025 [facility], [address], [address], 10/20/2024 16:32:50 Bactrim DS 800 mg-160 mg tablet 2023 025 [facility], [address], [address], 10/20/2024 15:27:05 mupirocin 2 % topical ointment 2023 025 [facility], [address], [address], 10/20/2024 15:26:56 Patient TargetsNo targets recorded. Patient InstructionsNo instructions recorded. 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 F olliculitis Referring Physician: Shirley Arreola, Family Medicine, Encounter Date: 02/03/2024 Results Created Date Observation [...] Recorded Time 07/03/19 22 colonoscopy completed Lila AMOS - [facility] & [place] 11/27/2022 10:23:19 06/02/19 21 Colonoscopy completed Octavia Springfield DANDRE - [facility] & [place] 02/03/2024 15:13:18 06/02/19 18 Dilation and curettage completed Lila Jocelynn DANDRE - [facility] & [place] 11/27/2022 10:22:58 06/02/19 14 ligation of fallopian tube completed Lila Jocelynn DANDRE - [facility] & [place] 11/27/2022 10:22:39 06/02/19 10 LEEP completed Lila Jocelynn DANDRE - [facility] & [place] 11/27/2022 10:22:28 Oral surgery procedure completed Lila Jocelynn DANDRE - [facility] & [place] 11/27/2022 10:22:17 Imaging Results None recorded. Procedure Notes None recorded. Medical Equipment None Reported. Allergies Allergen ID Allergen Name Allergen Category Reaction Reaction Severity Criticality Documentation Date Start Date Code Code System Note Provider Name and Address Organization Details Recorded Time 58376 No known allergy (situatio n) Not available Not available Not available Not available 11/27/2022 01353 6003 SNOMED Lila Jocelynn hodge, DANDRE - [facility]NT [facility] & [place] 10:19:04 No known drug allergies Medications Name [...] Updated DateTime 5 165.1 cm 28 kg/m2 75047.5 2 g 97.7 [degF] 98 % 98 % 111 /min 132 mm[Hg] 86 mm[Hg] [facility] & [place] 5 15:31:51 Date Recorded Body weight Body temperature Oxygen saturation Oxygen saturation in Arterial blood by Pulse oximetry Heart rate Systolic blood pressure Diastolic blood pressure Provider Name and Address Organization Details Last Updated DateTime 4 16061.1 1 g 98.2 [degF] 99 % 99 % 72.02 /min 132 mm[Hg] 90 mm[Hg] [facility] & [place] 4 15:18:11 Social History Question Answer Notes LastModified by [facility] Details LastModified Time Tobacco Smoking Status Former Smoker Lila Jocelynn [facility], [facility] & [place] 11/27/2022 10:21:16 Do You Have An Advance Directive? No [email or web address] Information not available 02/03/2024 Are You Blind Or Do You Have Difficulty Seeing? No [email or web address] Information not available 02/03/2024 What Was The Date Of Your Most Recent Tobacco Screening? 02/01/2024 [email or web address] Information not available 02/03/2024 Sex: Female Functional Status Question Answer Note LastModified by [facility] Details LastModified Time Do you use any illicit or recreational drugs? No Information not available 11/27/2022 What is your level of alcohol consumption? None Information not available 11/27/2022 What is your exercise level? Occasional [email or web address] Information not available 02/03/2024 Mental Status Question Answer Note LastModified by Organization D etails LastModified Time Do you feel stressed (tense, restless, nervous, or anxious, or unable to sleep at night)? [id number] [email or web address] Information not available 02/03/2024 Family History Relationship Description Onset Age of this Age Resolved Age Notes LastModified by Organization Details LastModified Time Mother Hypertensive disorder Not available 11/27 10:20:30 Mother Diabetes mellitus [email or web address] Not available 08/2023 15:12:19 Mother Gastroesopha geal reflux disease pt. added direct ly (01/31) [email or web address] Not available 02/01/2024 10:48:51 Father Chronic obstructive pulmonary disease Not available 11/27 10:20:45 Father Malignant tumor of breast [email or web address] Not available 08/2023 15:12:19 Brother Hypoglycemia [email or web address] Not a vailable 02/03/2024 15:12:19 Medical History Condition Response Spine Problems Y Vision or Eye Problems Y Headaches Y GI Problems Y Back Problems Y Gynecological HistoryNo gynecological history recorded. Obstetrics History GPAL:G 0 P 0 0 0 0 Immunizations Vaccine Type Date Status Note Provider Nam e and Address Organization Details Recorded Time COVID-19, mRNA, LNP-S, PF, 100 mcg/0.5mL dose or 50 mcg/0.25mL dose 04/06/2021 completed DANDRE Fu - [place] & [place] 02/03/2024 15:13:25 Tdap 09/01/2019 completed DANDRE Fu - [place] & [place] 02/03/2024 15:13:25 Past Encounters Encounter ID Performer Location Encounter Start Date Encounter Closed Date Diagnosis/Indication Diagnosis SNOMED-CT Code Diagnosis ICD10 Code Diagnosis Note [id number] MD Elsa Colindres [facility] - [place] [address] [place] [address] 02/03/2024 15:11:37 02/03/2024 15:37:26 Folliculitis 52936609 L73.9 pt requests referral to derm for [...] factorspt encouraged to f/u if not improving [id number] Shirley Arreola MD [facility] - [place] [address] [place] [address] 10/20/2024 15:19:22 10/20/2024 16:42:18 Screening mammography 41248021 Z12.31 family hx in mother, discussed MRI General ex amination of patient 954485979 Z00.00 Hyperlipid emia screening 492280362 Z13.220 Diabetes m ellitus screening 311162702 Z13.1 Fatigue 27036076 R53.83 Primary insomnia 6344732 F51.01 Stress 77509564 F43.9 Wheezing 18041011 R06.2 Gastroesop hageal reflux disease 651731737 K21.9 Health Concerns Section Related Observation LastModified by Organization Detai ls LastModified Time None Recorded Concern Status LastModified by Organization Details LastModified Time None Recorded Advance Directives Directive N: Payers Insurance Date Sequence Insurance Name Policy Number Policy Mcnally Covered Member ID Mcnally Member ID Guarantor Name 10/17/2024 1 [facility] (MEDICAID HMO) Mi Granda [id number] Mi Granda Notes Date Note Type Note Provider Name and Address Organization Details Recorded Time 02/03/2024 text/html She notes that w ith recent weight gain she has and increase [...] at about 3-4 days. Shirley Arreola MD [address], [place], [address], [facility] - [place] - [place] & [place] 02/03/2024 15:43:32 10/20/2024 text/html Patient is here for yearly check up and follow up.Last dental visit: May 2024Last eye exam: Currently due, last exam about 1 year ago Tdap vaccine: 2023Flu vaccine: UTD for seasonCovid vaccine: 1 dose completedShingles vaccine: not yet duePNA vaccine: not yet due mammogram: hx of breast pain due to hormone changes, [place] 2022, + family hx in mother currently [...] currently taking 40 mg of omeprazole with [id number]-wrj-[id number] options. She would like to see about a prescription options for this. She has also been struggling with fatigue. She feels that this is related to stress in her life but would like to look into some labs related to this. Shirley Arreola MD [address], [place], [address], [facility] - [place] & [place] 10/20/2024 16:42:00 OBGyn Episode No OBEpisode recorded.
[2024-10-27 13:00] LABS: Hemoglobin A1C 5.3 % (4.0-6.0)
[2024-10-27 13:23] LABS: Chol/HDL Ratio 3.5 (1-3.5); Cholesterol 142 mg/dl (140-200); HDL Cholesterol 41 mg/dl (40-60); Magnesium 1.9 mg/dl (1.6-2.3); Triglycerides 149 mg/dl (30-150); VLDL Cholesterol 30 mg/dL (0-40)
[2024-10-27 13:34] LABS: Direct LDL Cholesterol 87.63 mg/dL (100-129)
[2024-10-27 13:43] LABS: 25-OH Vitamin D, Total 34.1 ng/mL (30-100)
[2024-10-27 14:03] LABS: Iron 86 ug/dL (37-170)
[2024-10-27 14:13] LABS: Total Iron Binding Capacity 339 ug/dL (265-497)
[2024-10-27 14:17] LABS: Vitamin B12 937 pg/mL (239-931)
[2024-10-30 13:39] LABS: Miscellaneous Test SCANNED IMAGE
== END 2024-10-27 23:59 | disposition home or self-care (01) ==
LOC: LAB 12:10
PROVIDERS: PCP Family Medicine; Visit Provider Family Medicine
DX: R53.83 Other fatigue (principal); Z13.220 Encounter for screening for lipoid disorders; Z13.1 Encounter for screening for diabetes mellitus
CPT/HCPCS: 36415; 80061; 82306; 82607; 83036; 83540; 83550; 83735

== ENCOUNTER 2024-11-29 12:08 | Outpatient (CLI) | payer OTHER, SELFPAY ==
--- OUTSIDE RECORDS SUMMARY | 2024-11-29 12:46 | XMS_ITS | Clinical Summary ---
Author Organization [facility] Address [address] [place] [address] Phone Care Team Providers Care Cabinet Abrasive Sandblaster Name Role Phone Unavailable Primary Care Provider Unavailabl e Allergies No known active allergies Medications azithromycin (ZITHROMAX) 250 mg Oral Tablet Two Tabs on Day One, Then One Tab Daily for Days Two through Five. 6 Tab 7 Active Additional Information Patient not taking.Reported on 09/28/2016 predniSONE (DELTASONE) 10 mg Oral Tablets, Dose Pack 4 tabs p.o. Q. A.m. x3 days, then 3 tabs p.o. Q.a.m. x3 days, then 2 tabs p.o. Q.a.m. x3 days, then one tab p.o. Q.a.m. x3 days, then stop. 30 Tab 7 Active Additional Information Patient not taking.Reported on 09/28/2016 promethazine-co deine (PHENERGAN WITH CODEINE) 6.25-10 mg/5 mL Oral Syrup Take 5 mL by mouth every 4 hours as needed. 180 mL 7 Active Additional Information Patient not taking.Reported on 09/28/2016 Surgical History Surgery Date Site/Laterality Comments LEEP TUBAL LIGATION 06/02/2013 - 06/01/2014 Medical History Medical History Date Comments Asthma Social History Tobacco Use Types Packs/Day Years Used Date Smoking Tobacco: Every Day Cigarettes 1 10 Alcohol Use Standard Drinks/Week Comments No 0 (1 standard drink = 0.6 oz pur e alcohol) socially Comments Unknown Sex and Gender Information Value Date Recorded Sex Assigned at Not on file Legal Sex Female 1:48 PM EST Gender Identity Not on file Sexual Orientation Not on file Obstetrics History Last Filed Vital Signs Vital Sign Reading Time Taken Comments Blood Pressure 130/67 09/28/2016 2:32 PM EDT Pulse 100 09/28/2016 2:32 PM EDT Temperature 36.8 C (98.2 F) 09/28/2016 2:32 PM EDT Respiratory Rate 18 09/28/2016 2:32 PM EDT Oxygen Saturation 100% 09/28/2016 2:32 PM EDT Inhaled Oxygen Concentration - - Weight 49.9 kg (110 lb) 09/28/2016 2:32 PM EDT Height 162.6 cm (5' 4 ) 09/28/2016 2:32 PM EDT Body Mass Index 18.88 09/28/2016 2:32 PM EDT Plan of Treatment Health Maintenance Due Date Last Done Comments Annual Wellness Exam 1991 DTaP/TDaP/Td (1 - Tdap) 2007 Hepatitis B Vaccine (1 of 3 - 19+ 3-dose series) 2007 Cervical Cancer Screening 2009 Pap Smear 2009 HPV/Pap Cotest 2018 COVID-19 Vaccine ( - 2023-2 5 season) 2024 Influenza Vaccine (Season Ended) 2025 Meningococcal B Vaccine Aged Out No l onger eligible based on patient's age to complete this topic Pneumococcal Vaccine 0-49 Aged Out No longer eligible based on patient's age to complete this topic Insurance [employer] [facility] [place] [address]
[2024-11-29 13:47] LABS: Vitamin B12 963 pg/mL (239-931)
[2024-11-29 14:03] LABS: Folate 8.38 ng/mL
== END 2024-11-29 23:59 | disposition home or self-care (01) ==
LOC: LAB 12:10
PROVIDERS: PCP Family Medicine; Visit Provider Family Medicine
DX: R53.83 Other fatigue (principal)
CPT/HCPCS: 82607; 82746

== ENCOUNTER 2025-01-22 17:31 | Emergency (ER) | payer OTHER, SELFPAY ==
--- OUTSIDE RECORDS SUMMARY | 2024-11-30 09:30 | XMS_ITS | Encounter Summary ---
[facility] Organization [facility] Address [address] [place] [address] Care Team Providers Care Data Warehouse Administrator Name Role Phone Geovanna Lynch MD Primary Care Provider [phone] Reason for Visit * Diagnostic Imaging (Routine) - Closed Specialty Diagnoses / Procedures Referred By Contac t Referred To Contact Obstetrics and Gynecology Diagnoses Pelvic pain Procedures US Non-ob Transvaginal Jeanine Galan, HOSPITAL PHARMACY DIRECTOR [address] [facility] [address] [place] [address] Phone: tel: fax: [facility] [address] [place] [address] Phone: tel:[phone] fax:[phone] Referral ID Status Reason Start Date Expiration Date Visits Re quested Visits Authorized [id number] Closed 11/30/2024 03/01/2026 1 1 Encounter Details Date Type Department Care Team (Late st Contact Info) Description 11/30/2024 9:30 AM EDT Ancillary Procedure [facility] [address] [place] [address] Pelvic pain Social History Tobacco Use Types Packs/Day Years Used Date Smoking Tobacco: Former Cigarettes 0.5 15 Smokeless Tobacco: Never Comments:I stopped Alcohol Use Standard Drinks/Week Comments Yes 3 (1 standard drink = 0.6 oz pur e alcohol) rare Comments No Sex and Gender Information Value Date Recorded Sex Assigned at Not on file Legal Sex Female 10:50 AM EDT Gender Identity Not on file Sexual Orientation Not on file documented as of this encounter Plan of Treatment Upcoming Encounters Date Type Department Care Team (Late st Contact Info) Description 02/22/2025 1:30 PM EDT Office Visit [facility] [address] [place] [address] Jeanine Galan, HOSPITAL PHARMACY DIRECTOR [address] [facility] [address] [place] [id number] documented as of this encounter Procedures Procedure Name Priority Date/Time Associated Diagnosis Comments US NON-OB TRANSVAGINAL Routine 11/30/2024 9:48 AM EDT Pelvic pain documented in this encounter Results * US Non-ob Transvaginal (11/30/2024 9:48 AM EDT) Anatomical Region Laterality Modality Body Ultrasound 11/30/2024 9:24 AM EDT Narrative 11/30/2024 1:08 PM EDT PAT NAME: MI MORRISSEY [facility] REC#: [id number] DA: 1990 PAT GEND: F PAT TYPE: O EXAM ROSS: [id number] REF PHYS BRIDGETTE JEANINE Indication ======== Left sided pain; Recent UTI treated, patient unsure if UTI is gone; CCUA obtained; patient started menses this morning; Comparison Studies There are no relevant prior studies to which this study is being compared Method ======= Voluson E6, Transvaginal ultrasound examination, Color Doppler flow performed, 3D ultrasound examination. View: Adequate view Uterus ====== Uterus: Visualized Uterus position: Anteverted Description of uterine malformations: none Myometrium: Heterogeneous Endometrium: Uniform; small echogenicities noted on emc border Cervix details: Normal Uterus long 75 mm Uterus ap 40 mm Uterus tr 43 mm Uterus Vol 67.3 cm Endometrial thickness, total 8.8 mm Fibroids: Fibroids identified Uterine fibroid D1 9.0 mm Uterine fibroid D2 6.7 mm Uterine fibroid D3 7.0 mm Uterine fibroid vol 0.222 cm Uterine fibroids findings: fundal Right Ovary Rt ovary: Visualized Rt ovary D1 21.1 mm Rt ovary D2 16.2 mm Rt ovary D3 12.2 mm Rt ovary Vol 2.2 cm Rt ovarian cyst(s): No cysts identified Left Ovary ========= Lt ovary: Visualized Lt ovary D1 20.7 mm Lt ovary D2 12.9 mm Lt ovary D3 12.40 mm Lt ovarian cyst(s): No cysts identified Cul de Sac Visualized. No free fluid visualized Bladder ======= Visualized Impression The uterus is normal in size Very small <1cm intramural fibroid. The endometrium appears sonographically normal in shape and appearance The ovaries appear sonographically normal in size, shape and morphology Recommendation Follow-up as clinically indicated. Door Installer: Lin Adrian RN, RDMS Physician: Keaton North MD Electronically signed by: Keaton North MD at: 13:08 Procedure Note Keaton North MD - 11/30/2024 PAT NAME: MI MORRISSEY [facility] REC#: [id number] DA: 1990 PAT GEND: F PAT TYPE: O EXAM ROSS: [id number] REF PHYS JEANINE GALAN Indication ======== Left sided pain; Recent UTI treated, patient unsure if UTI is gone; CCUAobtained; patient started menses this morning; Comparison Studies There are no relevant prior studies to which this study is beingcompared Method ======= Voluson E6, Transvaginal ultrasound examination, Color Doppler flowperformed, 3D ultrasound examination. View: Adequate view Uterus ====== Uterus:Visualized Uterus position:Anteverted Description of uterine malformations:none Myometrium:Heterogeneous Endometrium:Uniform; small echogenicities noted on emc border Cervix details:Normal Uterus long75 mm Uterus ap40 mm Uterus tr43 mm Uterus Vol67.3 cm Endometrial thickness, total8.8 mm Fibroids:Fibroids identified Uterine fibroid D19.0 mm Uterine fibroid D26.7 mm Uterine fibroid D37.0 mm Uterine fibroid vol0.222 cm Uterine fibroids findings:fundal Right Ovary Rt ovary:Visualized Rt ovary D121.1 mm Rt ovary D216.2 mm Rt ovary D312.2 mm Rt ovary Vol2.2 cm Rt ovarian cyst(s):No cysts identified Left Ovary ========= Lt ovary:Visualized Lt ovary D120.7 mm Lt ovary D212.9 mm Lt ovary D312.40 mm Lt ovarian cyst(s):No cysts identified Cul de Sac Visualized. No free fluid visualized Bladder ======= Visualized Impression The uterus is normal in size Very small <1cm intramural fibroid. The endometrium appears sonographically normal in shape and appearance The ovaries appear sonographically normal in size, shape and morphology Recommendation Follow-up as clinically indicated. Door Installer: Lin Adrian RN, [facility] Physician: Keaton North MD Electronically signed by: Keaton North MD at: 13:08 Jeanine Galan HOSPITAL PHARMACY DIRECTOR IMG US ORDERABLES Final R esult documented in this encounter Visit Diagnoses Diagnosis Pelvic pain documented in this encounter Care Teams Data Warehouse Administrator Relationship Specialty Start Date End Date Geovanna Lynch MD PCP - General Family Medicine 06/28/21 documented as of this encounter
--- OUTSIDE RECORDS SUMMARY | 2024-11-30 10:00 | XMS_ITS | Encounter Summary ---
Author Organization [facility] Address [address] [place] [id number] Care Team Providers Care Packer Insulation Name Role Phone Geovanna Lynch MD Primary Care Provider [phone] Reason for Referral * Diagnostic Imaging (Routine) - Closed Specialty Diagnoses / Procedures Referred By Contac t Referred To Contact Obstetrics and Gynecology Diagnoses Pelvic pain Procedures US Non-ob Transvaginal Jeanine Galan APRN [address] [facility] [address] [place] [id number] Phone: tel: fax: [facility] [address] [place] [address] Phone: tel:[phone] fax:[phone] Referral ID Status Reason Start Date Expiration Date Visits Re quested Visits Authorized [id number] Closed 11/30/2024 03/01/2026 1 1 Reason for Visit * Reason Comments New patient LLQ pain Encounter Details Date Type Department Care Team (Late st Contact Info) Description 11/30/2024 10:00 AM EDT Office Visit [facility] [address] [place] [address] Jeanine Galan APRN [address] [facility] [address] [place] [address] Pelvic pain (Primary Dx); Women's annual routine gynecological examination Social History Tobacco Use Types Packs/Day Years Used Date Smoking Tobacco: Former Cigarettes 0.5 15 Smokeless Tobacco: Never Tobacco Cessation:Counseling Given: Not Answered Comments:I stopped Alcohol Use Standard Drinks/Week Comments Yes 3 (1 standard drink = 0.6 oz pur e alcohol) rare Comments No Sex and Gender Information Value Date Recorded Sex Assigned at Not on file Legal Sex Female 10:50 AM EDT Gender Identity Not on file Sexual Orientation Not on file documented as of this encounter Last Filed Vital Signs Vital Sign Reading Time Taken Comments Blood Pressure 138/90 11/30/2024 10:18 AM EDT Pulse - - Temperature - - Respiratory Rate - - Oxygen Saturation - - Inhaled Oxygen Concentration - - Weight 76.2 kg (168 lb) 11/30/2024 10:18 AM EDT Height 162.6 cm (5' 4 ) 11/30/2024 10:18 AM EDT Body Mass Index 28.84 11/30/2024 10:18 AM EDT documented in this encounter Progress Notes * Jeanine Galan, SALES PERFORMANCE MANAGER - 11/30/2024 10:00 AM EDT Images from the original note were not included. Gynecologic Annual Exam Note New patient and LLQ pain Subjective HPI Mi Morrissey is a 34 y.o. female who presents for annual well woman exam as a new patient. Patient's last menstrual period was 11/30/2024 (exact date). Her periods occur every 25-35 days, lasting 2-3 days. The flow is light. She reports dysmenorrhea is severe occurring premenstrually and throughout menses. Marital Status: . She is sexually active. She has had new partners.. STD testing recommendations have been explained to the patient and she does desire STD testing. The patient would like to discuss the following complaints today: LLQ pain x 1 month. Pain was severe when initially beginning, but became more mild to moderate 2-3 days later. Pain is still occurring intermittently, and is mild to moderate but improved. 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 Results: negative. HPV: unknown . Last Completed Pap Smear This patient has no relevant Health Maintenance data. History of abnormal Pap smear: h/o LEEP in 2009 Gardasil status:none Family history of uterine, colon, breast, or ovarian cancer: yes - Breast- mother Performs monthly Self-Breast Exam: yes Exercises Regularly:yes Feelings of Anxiety or Depression: yes - managed Tobacco Usage?: No Current Outpatient Medications: albuterol sulfate HFA (Ventolin HFA) 108 (90 Base) MCG/ACT inhaler, Inhale 2 puffs Every 6 (Six) Hours As Needed for Shortness of Air., Disp: , Rfl: buPROPion XL (WELLBUTRIN XL) 300 MG 24 hr tablet, Take 1 tablet by mouth Every Morning., Disp: , Rfl: omeprazole (priLOSEC) 40 MG capsule, Take 1 capsule by mouth Daily., Disp: , Rfl: ProAir HFA 108 (90 Base) MCG/ACT inhaler, Inhale 2 puffs Every 4 (Four) Hours As Needed., Disp: , Rfl: tiZANidine (ZANAFLEX) 2 MG tablet, Take 1 tablet by mouth 3 (Three) Times a Day As Needed., Disp: ,Rfl: Patient denies the need for medication refills today. OB History 3 Para 3 Term 3 AB Living 3 SAB IAB Ectopic Molar Multiple Live Births 3 Health Maintenance Topic Date Due Annual Gynecologic Pelvic and Breast Exam Never done PAP SMEAR Never done HEPATITIS C SCREENING Never done ANNUAL PHYSICAL Never done COVID-19 Vaccine ( - 2023- season) 2024 INFLUENZA VACCINE 11/30/2024 TDAP/TD VACCINES (2 - Td or Tdap) 08/31/2029 Pneumococcal Vaccine 0-49 Aged Out Past Medical History: Diagnosis Date Arthritis Asthma Back problem Low back pain Lumbosacral disc disease Past Surgical History: Procedure Laterality Date EPIDURAL BLOCK EXPLORATORY LAPAROTOMY LEEP MOUTH SURGERY The additional following portions of the patient's history were reviewed and updated as appropriate: allergies, current medications, past family history, past medical history, past social history, past surgical history, and problem list. Review of Systems Constitutional: Negative. Negative for fever. Respiratory: Negative. Cardiovascular: Negative. Gastrointestinal: Negative. Negative for blood in stool, constipation, diarrhea, nausea and vomiting. Genitourinary: Positive for pelvic pain (LLQ pain x 1 month) and vaginal bleeding. Musculoskeletal: Negative. Skin: Negative. Psychiatric/Behavioral: Positive for depressed mood (managed). The patient is nervous/anxious (managed). I have reviewed and agree with the HPI, ROS, and historical information as entered above. Jeanine Lees, SALES PERFORMANCE MANAGER Objective BP 138/90 Ht 162.6 cm (64 ) Wt 76.2 kg (168 lb) LMP 11/30/2024 (Exact Date) BMI 28.84 kg/m?? Physical Exam Constitutional: Appearance: Normal appearance. Neck: Thyroid: No thyroid mass or thyromegaly. Pulmonary: Effort: Pulmonary effort is normal. Chest: Chest wall: No mass. Breasts: Right: Normal. No inverted nipple, mass, nipple discharge or skin change. Left: Normal. No inverted nipple, mass, nipple discharge or skin change. Abdominal: General: There is no distension. Palpations: Abdomen is soft. There is no mass. Tenderness: There is no abdominal tenderness. Hernia: No hernia is present. Genitourinary: General: Normal vulva. Labia: Right: No rash. Left: No rash. Vagina: Bleeding present. Cervix: No cervical motion tenderness or lesion. Uterus: Normal. Adnexa: Right adnexa normal and left adnexa normal. Right: No mass or tenderness. Left: No mass or tenderness. Neurological: Mental Status: She is alert. Assessment and Plan Problem List Items Addressed This Visit None Visit Diagnoses Pelvic pain - Primary Relevant Orders US Non-ob Transvaginal (Completed) LIQUID-BASED PAP SMEAR WITH HPV GENOTYPING REGARDLESS OF INTERPRETATION (JERRY,COR,MAD) POC Urinalysis Dipstick (Completed) Urine Culture - Urine, Urine, Clean Catch Women's annual routine gynecological examination Relevant Orders LIQUID-BASED PAP SMEAR WITH HPV GENOTYPING REGARDLESS OF INTERPRETATION (JERRY,COR,MAD) CCUA- blood only. Urine sent for culture. STD screen today. U/S reviewed with patient and virtuallynormal with likely incidental 1 cm uterine fibroid. This seems unlikely COMMODITIES CLERK in nature. Advised F/U with PCP if pain persists. COMMODITIES CLERK annual well woman exam. Reviewed pap guidelines. Reviewed monthly self breast exams. Instructed to call with lumps, pain, or breast discharge. Return in about 1 year (around 11/30/2025), or if symptoms worsen or fail to improve, for Annual physical. Jeanine Galan APRN 11/30/2024 documented in this encounter Plan of Treatment Upcoming Encounters Date Type Department Care Team (Late st Contact Info) Description 02/22/2025 1:30 PM EDT Office Visit [facility] [address] [place] [address] Jeanine Galan APRN [address] [facility] [address] [place] [address] documented as of this encounter Procedures Procedure Name Priority Date/Time Associated Diagnosis Comments URINE CULTURE Routine 11/30/2024 11:40 AM EDT Pelvic pain LIQUID-BASED PAP SMEAR WITH HPV GENOTYPING REGARDLESS OF INTERPRETATION, [facility] (JERRY,COR,MAD) Routine 11/30/2024 10:54 AM EDT Pelvic pain Women's annual routine gynecological examination POCT URINALYSIS DIPSTICK, MANUAL Routine 11/30/2024 10:40 AM EDT Pelvic pain documented in this encounter Results * Urine Culture - Urine, Urine, Clean Catch (11/30/2024 11:40 AM EDT) Urine Culture Final report [facility] Result 1 Comment [facility] Comment: Mixed urogenital traci Less than 10,000 colonies/mL Urine Urine specimen obtained by clean catch procedure / Unknown 11/30/2024 11:40 AM EDT 11/30/2024 Comment:UR Narrative [facility] - 12/02/2024 7:09 AM EDT Performed at: [address] [place] [id number] Slide Developer: Rao Campuzano PhD, Phone: [phone] Patient Fasting: N Jeanine Galan SALES PERFORMANCE MANAGER MICROBIOLOGY - GENERAL OR DERABLES Final Result [facility] [address] [place] [address], [place] [phone] [facility] [address] [place] [address], [place] [phone] * LIQUID-BASED PAP SMEAR WITH HPV GENOTYPING REGARDLESS OF INTERPRETATION (JERRY,COR,MAD) (11/30/2024 10:54 AM EDT) Reference Lab Report [facility] [address] [place] [address] or [phone] Magdi Guevara M.D., Lockstitcher PATIENT NAME LABORATORY NO. [id number] NIÑO. [id number] AGE SEX SSN CLIENT REF # [facility] ([place]) 34 1990 F [id number] [facility] KHARI COSME REQUESTING Marty. [place] [address] JEANINE GALAN DATE COLLECTED DATE RECEIVED DATE REPORTED 11/30/2024 11/30/2024 12/02/2024 ThinPrep Pap with Hologic Genius Imaging DIAGNOSIS: Negative for intraepithelial lesion or malignancy Multiple factors can influence accuracy of Pap tests; therefore, screening at regular intervals is necessary for early cancer detection. SPECIMEN ADEQUACY: SATISFACTORY FOR EVALUATION Transformation zone is present. Partially obscuring blood and inflammation are present. Sparse cellularity, minimal number of squamous cells available for evaluation. SOURCE OF SPECIMEN: CERVICAL/ENDOCERVI FEDERICO SLIDES: 1 CLINICAL HISTORY: H/O LEEP 2010 Pelvic pain Women's annual routine gynecological examination Screening for STD HPV HR-HPV POOL: Negative The Aptima HPV assay is an in vitro nucleic acid amplification test for the qualitative detection of E6/E7 viral messenger RNA from 14 high risk types of HPV in cervical specimens. The high risk HPV types detected include: 16, 18, 31, 33, 35, 39, 45, 51, 52, 56, 58, 59, 66, 68 Chlamydia / Gonorrhea CHLAMYDIA TRACHOMATIS: Negative NEISSERIA GONORRHOEAE: Negative The Aptima Combo 2 assay is a target amplification nucleic acid probe test that utilizes target capture for the in vitro qualitative detection and differentiation of ribosomal RNA from Chlamydia trachomatis and Neisseria gonorrhoeae to aid in the diagnosis of chlamydial and gonococcal disease using the Isle system. Trichomonas TRICHOMONAS VAGINALIS: Negative The Aptima Trichomonas vaginalis assay is an in vitro qualitative nucleic acid amplification test for the detection of ribosomal RNA to aid in the diagnosis of trichomoniasis. CHILDREN'S MINISTER: CELSO ROJAS (ASCP) CPT CODES: 80575, 52065, 99668, 70243, 11180 12/02/2024 12:37 PM EDT [facility] ThinPrep Vial Collection / Unknown 11/30/2024 10:54 AM EDT 11/30/2024 10:54 AM EDT Jeanine Galan SALES PERFORMANCE MANAGER PATHOLOGY/CYTOLOGY ORDERA BLES Final Result [facility]
[address] [place] [address], * (ABNORMAL) POC Urinalysis Dipstick (11/30/2024 10:40 AM EDT) Glucose, UA Negative Negative mg/dL [facility] Bilirubin Negative Negative [facility] Ketones, UA Negative Negative [facility] Specific [place] 1.010 1.005 - 1.030 [facility] Blood, UA 3+(A) Negative [facility] pH, Urine 7.5 5.0 - 8.0 [facility] Protein, POC Negative Negative mg/dL [facility] Urobilinogen, UA Normal Normal, 0.2 E.U./dL [facility] Leukocytes Negative Negative [facility] Nitrite, UA Negative Negative [facility] Urine 11/30/2024 10:4 0 AM EDT Jeanine Galan SALES PERFORMANCE MANAGER POINT OF CARE TEST ORDERA BLES Final Result [facility]
[address] [place] [id number], * US Non-ob Transvaginal (11/30/2024 9:48 AM EDT) Anatomical Region Laterality Modality Body Ultrasound 11/30/2024 9:24 AM EDT Narrative 11/30/2024 1:08 PM EDT PAT NAME: MI MORRISSEY MED REC#: [id number] DA: 1990 PAT GEND: F PAT TYPE: O EXAM ROSS: [id number] REF PHYS JEANINE GALAN Indication ======== Left [...] and morphology Recommendation Follow-up as clinically indicated. Vehicle Mechanic: Lin Adrian RN, [facility] Physician: Keaton North MD Electronically signed by: Keaton North MD at: 13:08 Procedure Note Keaton North MD - 11/30/2024 PAT NAME: MI MORRISSEY [facility] REC#: [id number] DA: 1990 PAT GEND: F PAT TYPE: O EXAM ROSS: [id number] REF PHYS JEANINE GALAN Indication ======== Left [...] and morphology Recommendation Follow-up as clinically indicated. Vehicle Mechanic: Lin Adrian RN, RDMS Physician: Keaton North MD Electronically signed by: Keaton North MD at: 13:08 us Jeanine Galan SALES PERFORMANCE MANAGER IMG US ORDERABLES Final R esult documented in this encounter Visit Diagnoses Diagnosis Pelvic pain- Primary Women's annual routine gynecological examination Pelvic pain documented in this encounter Care Teams Packer Insulation Relationship Specialty Start Date End Date Geovanna Lynch MD PCP - General Family Medicine 06/28/21 documented as of this encounter
[2025-01-22] VITALS (9 sets, daily range): BP systolic 102–138; BP diastolic 58–92; PULSE 63–97; RESP 16–20; TEMP 36.4–36.7; O2SAT 94–97; BMI 26.6
--- NOTE | 2025-01-22 17:35 | HMH.EDGENADL ---
Discharge Plan Disposition Patient Disposition: Home, Self-Care Condition: Good Prescriptions Prescriptions: No Action albuterol sulfate 90 mcg/actuation aero powdr breath act w/sensor 2 inh inhalation Q6H PRN (Reason: sob) Qty: 1 2RF cetirizine [All Day Allergy (cetirizine)] 10 mg tablet 10 mg PO DAILY Qty: 30 0RF amoxicillin 500 mg tablet 500 mg PO BID 10 Days Qty: 20 0RF fluticasone propionate [Flonase Allergy Relief] 50 mcg/actuation spray,suspension 1 spray intranasal DAILY Qty: 16 0RF Rx Instructions: administer into each nostril Referrals Follow up/Referrals: Geovanna Lynch MD [Primary Care Provider, Family Practice] - See instructions Activity Restrictions/Add. Instructions Additional Instructions/Restrictions: You can take Tylenol and Motrin at home for any related symptoms. You likely will have more swelling over the next few days you can use cool compresses as needed. Return to the emergency department for any acute or worsening symptoms. Clinical Impressions Clinical Impression: Acute facial pain Print Language Print Language: German Discharge ED Provider: Mi Terrazas General Adult HPI General Chief complaint: Head Injury Stated complaint: Possible Broken R Cheek Bone; Fall Time Seen by Provider: 01/22/25 17:35 History of Present Illness HPI narrative: Patient is an otherwise healthy 34-year-old female who presents to the emergency department after a fall. Patient states that she was in her garage when she tripped and landed onto a metal pole. Patient states she landed onto her right cheek. Patient reports swelling on her cheek and pain but did not have any loss of consciousness. Patient is not on any blood thinners, did not take any daily medications. Patient has some pain in her right cheek but denies a headache or vision changes. Patient denies any neck pain. Patient denies any other extremity pain. Related Data Previous Rx's ?Medication ?Instructions ?Recorded albuterol sulfate 90 mcg/actuation 2 inh inhalation Q6H PRN sob #1 ea 08/23/24 breath activated powder inhaler,sensor amoxicillin 500 mg tablet 500 mg PO BID 10 days #20 tabs 01/06/25 cetirizine 10 mg tablet (All Day 10 mg PO DAILY #30 tabs 01/06/25 Allergy (cetirizine)) fluticasone propionate 50 1 spray intranasal DAILY #16 grams 01/06/25 mcg/actuation nasal spray,suspension (Flonase Allergy Relief) Allergies Allergy/AdvReac Type Severity Reaction Status Date / Time No Known Allergies Allergy Verified 06/15/24 15:10 [facility] Disclaimer: The information contained in this section may have been updated after the patient was seen, as this information can be updated by other users. Medical History (Updated 01/22/25 @ 20:01 by Mi Terrazas DO) Anxiety Migraine Asthma Surgical History History of tubal ligation Social History Smoking Status: Current every day smoker alcohol intake: never current occupational status: other Travel in the last 8 weeks?: None Have you lived/traveled outside US in past 30 days?: No Contact w/someone who lives/traveled outside US past 30 days?: No Exposure to someone with infectious disease in past 14 days?: No Do you have a fever (greater than 100.4 F or 38 C)?: No Have you tested positive for COVID-19?: No Exposed to someone with COVID-19 in past 14 days?: No Do you have a sore throat?: No Do you have a cough?: No Do you have any weakness?: No Do you have any diarrhea?: No Are you experiencing any unusual bleeding?: No Do you have any muscle aches/pain?: No Do you have any abdominal pain?: No Are you experiencing loss of taste or smell?: No Other Medical History Have you received the Flu Vaccine for this season: No Have you received the Pneumonia Vaccine: No ROS Obtained: Yes All systems reviewed & no additional complaints except as documented and Yes Systems reviewed as appropriate & no additional complaints except as documented Physical Exam General General appearance: alert and in no apparent distress Head Head exam: normocephalic, normal inspection and other (Mild pain and swelling along the right cheekbone, no Leslie sign, no raccoon eyes) Eye Eye exam: Present normal appearance, PERRL and EOMI; Absent scleral icterus, conjunctival redness, conjunctival injection, nystagmus or periorbital swelling ENT ENT exam: Present normal exam and normal external ear exam Neck Neck exam: Present normal inspection, full ROM and other (No midline cervical spine tenderness); Absent tenderness Chest Chest inspection: Present normal inspection and symmetric chest wall rise Respiratory Respiratory exam: Present normal lung sounds bilaterally; Absent respiratory distress or wheezes Cardiovascular Cardiovascular exam: Present regular rate, normal rhythm and normal heart sounds Abdominal Exam Abdominal exam: Present soft and distention; Absent tenderness, guarding or rebound Extremities Exam Extremities exam: Present normal inspection and full ROM Back Exam Back exam: Present normal inspection and full ROM Neurological Exam Neurological exam: Present alert and oriented X3 Psychiatric Psychiatric exam: Present normal affect and normal mood Skin Skin exam: Present warm and dry Medical Decision Making Medical Records Medical records reviewed: Yes I reviewed the patient's medical records. Screening: Per USPSTF and CDC recommendations, given the prevalence of disease in our region, it is our hospital?s policy to screen for HIV and viral Hepatitis for all patients aged 18 and over and those with ongoing risk factors. Marshal Inquiry Pt receiving controlled substance: No Vital Signs: 01/22/25 17:35 01/22/25 17:45 01/22/25 18:00 Temperature 98.1 F Temperature Source Oral Pulse Rate 88 77 Pulse Rate [Left Radial] 97 H Respiratory Rate 20 Blood Pressure 138/92 H 119/85 Blood Pressure [Right Arm] 138/92 H Blood Pressure Mean [Right Arm] 107 Blood Pressure Position 02 Sat by Pulse Oximetry 97 96 96 Oxygen Delivery Method Room Air 01/22/25 18:30 01/22/25 18:54 01/22/25 19:01 Temperature Temperature Source Pulse Rate 73 69 63 Pulse Rate [Left Radial] Respiratory Rate Blood Pressure 123/75 102/63 L Blood Pressure [Right Arm] Blood Pressure Mean [Right Arm] Blood Pressure Position 02 Sat by Pulse Oximetry 97 94 L 95 Oxygen Delivery Method 01/22/25 19:30 01/22/25 20:00 01/22/25 20:05 Temperature 97.6 F 97.6 F Temperature Source Oral Pulse Rate 63 74 74 Pulse Rate [Left Radial] Respiratory Rate 16 16 Blood Pressure 102/58 L 119/73 117/73 Blood Pressure [Right Arm] Blood Pressure Mean [Right Arm] Blood Pressure Position Supine 02 Sat by Pulse Oximetry 97 96 Oxygen Delivery Method Room Air Lab Data Lab results reviewed: Yes I reviewed the patient's lab results. Orders (Tests/Meds): ED MEDICATIONS Discontinued Medications Generic Name Dose Route Start Last Admin Trade Name Nuvia PRN Reason Stop Dose Admin Acetaminophen 1,000 mg 01/22/25 18:05 01/22/25 18:43 Acetaminophen 500mg Tab PO 01/22/25 18:06 1,000 mg ONCE ONE Administration Oxycodone HCl 5 mg 01/22/25 18:05 01/22/25 18:43 Oxycodone 5mg Immediate Release Tablet PO 01/22/25 18:06 5 mg ONCE ONE Administration ORDERS Category Date Time Status CT facial bones wo con Stat Cat Scan 01/22/25 18:[address] head/brain wo con Stat Cat Scan 01/22/25 18:03 Completed Medical Decision Narrative: Patient is an otherwise healthy 34-year-old female who presented to the emergency department after a fall onto her right cheek. On arrival, patient was hemodynamically stable with unremarkable vital signs. Differential includes but not limited to: Fracture, intracranial pathology, sprain, strain, amongst others. CT face and CT head were obtained which showed no acute intracranial pathology, no facial fractures. Patient was given medications for symptomatic management in the emergency department. Patient was given instructions on how to care for the swelling in her face and patient was discharged home. Return precautions were discussed. Critical Care Critical Care Time Critical Care Time: No
--- OUTSIDE RECORDS SUMMARY | 2025-01-22 17:43 | XMS_ITS | Clinical Summary ---
Author Organization [facility] Address [address] [place] [address] Care Team Providers Care Information Services Manager Name Role Phone Geovanna Lynch MD Primary Care Provider [phone] Allergies No known active allergies Medications buPROPion XL (WELLBUTRIN XL) 300 MG 24 hr tablet Take 1 tablet by mouth Every Morning. 2 Active tiZANidine (ZANAFLEX) 2 MG tablet Take 1 tablet by mouth 3 (Three) Times a Day As Needed. 2 Active ProAir HFA 108 (90 Base) MCG/ACT inhaler Inhale 2 puffs Every 4 (Four) Hours As Needed. 2 Active omeprazole (priLOSEC) 40 MG capsule Take 1 capsule by mouth Daily. Active albuterol sulfate HFA (Ventolin HFA) 108 (90 Base) MCG/ACT inhaler Inhale 2 puffs Every 6 (Six) Hours As Needed for Shortness of Air. 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 Acquired spondylolisthesis 09/24/2021 Encounters Date Type Department Care Team Description 12/20/2024 Results Follow-Up [facility] [address] [place] [address] Jeanine Galan APRN 12/02/2024 Results Follow-Up [facility] [address] [place] [address] GalanJeanine finley APRN 11/30/2024 10:00 AM EDT Office Visit [facility] [address] [place] [address] Jeanine Galan APRN Pelvic pain (Primary Dx); Women's annual routine gynecological examination 11/30/2024 9:30 AM EDT Ancillary Procedure [facility] [address] [place] [address] Pelvic pain 11/30/2024 Travel 11/30/2024 Telephone [facility] [address] [place] [address] Jeanine Galan APRN ABOUT APPOINTMENT AND US (PATIENT IS ON CYCLE- LIGHT) from Last 3 Months Family History Medical History Relation Name Comments Arthritis Father Rio Roberto COPD Father Rio Roberto Arthritis Mother Maria M Roberto COPD Mother Maria M Roberto Depression Mother Maria M Roberto Relation Name Status Comments Father Rio Roberto Mother Maria M Roberto Social History Tobacco Use Types Packs/Day Years [...] on file Sexual Orientation Not on file Last Filed Vital Signs Vital Sign Reading Time Taken Comments Blood Pressure 138/90 11/30/2024 10:18 AM EDT Pulse - - Temperature 36.9 C (98.4 F) 09/24/2021 12:50 PM EDT Respiratory Rate 18 02/21/2022 11:27 AM EDT Oxygen Saturation - - Inhaled Oxygen Concentration - - Weight 76.2 kg (168 lb) 11/30/2024 10:18 AM EDT Height 162.6 cm (5' 4 ) 11/30/2024 10:18 AM EDT Body Mass Index 28.84 11/30/2024 10:18 AM EDT Plan of Treatment Upcoming Encounters Date Type Department Care Team (Late st Contact Info) Description 02/22/2025 1:30 PM EDT Office Visit [facility] [address] [place] [address] Jeanine Galan, SURGICAL INSTRUMENT MAKER [address] [place] [address] Health Maintenance Due Date Last Done Comments ANNUAL PHYSICAL 09/24/2021 HEPATITIS C SCREENING 09/24/2021 COVID-19 Vaccine (2 - 2023-2 5 season) 2024 04/06/2021 INFLUENZA VACCINE 03/02/2025 Annual Gynecologic Pelvic an d Breast Exam 12/01/2025 11/30/2024 PAP SMEAR 12/01/2027 11/30/2024 TDAP/TD VACCINES (2 - Td or Tdap) 08/31/2029 020 Pneumococcal Vaccine 0-49 Aged Out No longer eligible based on patient's age to complete this topic Procedures Procedure Name Priority Date/Time Associated Diagnosis Comments URINE CULTURE Routine 11/30/2024 11:40 AM EDT Pelvic pain LIQUID-BASED PAP SMEAR WITH HPV GENOTYPING REGARDLESS OF INTERPRETATION, [facility] (JERRY,[facility]) Routine 11/30/2024 10:54 AM EDT Pelvic pain Women's annual routine gynecological examination POCT URINALYSIS DIPSTICK, MANUAL Routine 11/30/2024 10:40 AM EDT Pelvic pain US NON-OB TRANSVAGINAL Routine 11/30/2024 9:48 AM EDT Pelvic pain SCANNED - MAMMO 11/30/2024 from Last 3 Months Results * Urine Culture - Urine, Urine, Clean Catch (11/30/2024 11:40 AM EDT) Urine Culture Final report [facility] Result 1 Comment [facility] Comment: Mixed urogenital traci Less than 10,000 colonies/mL Urine Urine specimen obtained by clean catch procedure / Unknown 11/30/2024 11:40 AM EDT 11/30/2024 Comment:UR Narrative [facility] SM[facility] (AMBULATORY) - 12/02/2024 7:09 AM EDT Performed at: [facility] [address] [place], [place] [id number] Cigarette Machine Operator: Rao Campuzano PhD, Phone: [phone] Patient Fasting: N Jeanine Galan SURGICAL INSTRUMENT MAKER MICROBIOLOGY - GENERAL OR DERABLES Final Result [facility]EN SARAH (AMBULATORY) [address] [place] [address], [facility] [address] [place] [address], * LIQUID-BASED PAP SMEAR WITH HPV GENOTYPING REGARDLESS OF INTERPRETATION (JERRY,COR,MAD) (11/30/2024 10:54 AM EDT) Reference Lab Report [facility] [address] [place] [address] or [phone] Magdi Guevara M.D., Tire Care Manager PATIENT NAME [facility] GERONIMO. [id number] AGE SEX SSN CLIENT REF # [facility] [place] 34 1990 F [id number] Opal COSME REQUESTING Deysi [place] [address] JEANINE GALAN DATE COLLECTED DATE RECEIVED DATE [...] of chlamydial and gonococcal disease using the [place] system. Trichomonas TRICHOMONAS VAGINALIS: Negative The Aptima Trichomonas vaginalis assay is an in vitro qualitative nucleic acid amplification test for the detection of ribosomal RNA to aid in the diagnosis of trichomoniasis. ORCHESTRA LEADER: CELSO ROJAS (ASCP) CPT CODES: 46641, [id number], 90383, 87179, 06444 12/02/2024 12:37 PM EDT [facility] ThinPrep Vial Collection / Unknown 11/30/2024 10:54 AM EDT 11/30/2024 10:54 AM EDT Jeanine Galan SURGICAL INSTRUMENT MAKER PATHOLOGY/CYTOLOGY ORDERA BLES Final Result [facility]
[address] [place] [address], * (ABNORMAL) POC Urinalysis Dipstick (11/30/2024 10:40 AM EDT) Glucose, UA Negative Negative mg/dL [facility] Bilirubin Negative Negative [facility] Ketones, UA Negative Negative [facility] Specific Morral 1.010 1.005 - 1.030 [facility] Blood, UA 3+(A) Negative [facility] pH, Urine 7.5 5.0 - 8.0 [facility] Protein, POC Negative Negative mg/dL [facility] Urobilinogen, UA Normal Normal, 0.2 E.U./dL [facility] Leukocytes Negative Negative [facility] Nitrite, UA Negative Negative [facility] Urine 11/30/2024 10:4 0 AM EDT Jeanine M Adama SURGICAL INSTRUMENT MAKER POINT OF CARE TEST ORDERA BLES Final Result [facility]
[address] [place] [address], * US Non-ob Transvaginal (11/30/2024 9:48 AM EDT) Anatomical Region Laterality Modality Body Ultrasound 11/30/2024 9:24 AM EDT Narrative 11/30/2024 1:08 PM EDT PAT NAME: MI MORRISSEY [facility] REC#: [id number] DA: 1990 PAT GEND: F PAT TYPE: O EXAM ROSS: [id number] REF PHYS GALAN, JEANINE Indication ======== Left sided pain; Recent [...] and morphology Recommendation Follow-up as clinically indicated. Core Composer Feeder: Lin Adrian RN, [facility] Physician: Keaton North MD Electronically signed by: Keaton North MD at: 13:08 Procedure Note Keaton North MD - 11/30/2024 PAT NAME: MI MORRISSEY [facility] REC#: [id number] DA: 1990 PAT GEND: F PAT TYPE: O EXAM ROSS: [id number] REF PHYS JEANINE GALAN Indication ======== Left [...] and morphology Recommendation Follow-up as clinically indicated. Core Composer Feeder: Lin Adrian, RN, [facility] Physician: Keaton North MD Electronically signed by: Keaton North MD at: 13:08 Jeanine Galan APRN [facility] ORDERABLES Final R esult * MAMMO Scan (11/30/2024) Anatomical Region Laterality Modality Other Jeanine Galan APRN CHART REVIEW TABS Lenora l Result from Last 3 Months Insurance [facility] Care Teams Information Services Manager Relationship Specialty Start Date End Date Geovanna Lynch MD PCP - General Family Medicine 06/28/21
--- OUTSIDE RECORDS SUMMARY | 2025-01-22 17:43 | XMS_ITS | Encounter Summary ---
Author Organization [facility] Address [address] [place] [id number] Care Team Providers Care Stripping Machine Operator Name Role Phone Geovanna Lynch MD Primary Care Provider Encounter Details Date Type Department Care Team (Latest Contact Info) Description 11/30/2024 Travel Social History Tobacco Use Types Packs/Day Years [...] Description 02/22/2025 1:30 PM EDT Office Visit [facility] [address] [place] [address] Jeanine Galan, HEALTH CARE CONSULTANT [address] [facility] [address] [place] [address] documented as of this encounter Visit Diagnoses Not on filedocumented in this encounter Care Teams Stripping Machine Operator Relationship Specialty Start Date End Date Geovanna Lynch MD PCP - General Family Medicine 06/28/21 documented as of this encounter
--- OUTSIDE RECORDS SUMMARY | 2025-01-22 17:43 | XMS_ITS | Encounter Summary ---
Author Organization [facility] Address [address] [place] [id number] Care Team Providers Care Senior Analyst Name Role Phone Geovanna Lynch MD Primary Care Provider [phone] Encounter Details Date Type Department Care Team (Late Contact Info) Description 12/20/2024 Results Follow-Up [facility]YN [address] [facility] [address] [place] [address] Jeanine Galan, SCREEN PRINTING EQUIPMENT SETTER [address] [facility] [address] [place] [address] Social History Tobacco Use Types Packs/Day Years [...] Description 02/22/2025 1:30 PM EDT Office Visit [facility] OBG[facility] [address] [place] [address] Jeanine Galan, SCREEN PRINTING EQUIPMENT SETTER [address] [facility] [address] [place] [address] documented as of this encounter Visit Diagnoses Not on filedocumented in this encounter Care Teams Senior Analyst Relationship Specialty Start Date End Date Geovanna Lynch MD PCP - General Family Medicine 06/28/21 documented as of this encounter
--- OUTSIDE RECORDS SUMMARY | 2025-01-22 17:43 | XMS_ITS | Encounter Summary ---
Author Organization [facility] Address [address] [place] [address] Care Team Providers Care Casting Agent Name Role Phone Geovanna Lynch MD Primary Care Provider [phone] Encounter Details Date Type Department Care Team (Late st Contact Info) Description 12/02/2024 Results Follow-Up [facility] O[facility] [address] [place] [address] Jeanine Galan, LITIGATION SECRETARY [address] [facility] [address] [place] [address] Social History Tobacco Use Types Packs/Day Years [...] Description 02/22/2025 1:30 PM EDT Office Visit [facility] O[facility] [address] [place] [address] Jeanine Galan, LITIGATION SECRETARY [address] [facility] [address] [place] [address] documented as of this encounter Visit Diagnoses Not on filedocumented in this encounter Care Teams Casting Agent Relationship Specialty Start Date End Date Geovanna Lynch MD PCP - General Family Medicine 06/28/21 documented as of this encounter
--- OUTSIDE RECORDS SUMMARY | 2025-01-22 17:43 | XMS_ITS | Encounter Summary ---
Author Organization [facility] Address [address] [place] [address] Care Team Providers Care Lamp Inspector Name Role Phone Geovanna Lynch MD Primary Care Provider [phone] Reason for Visit * Reason Onset Date Comments ABOUT APPOINTMENT AND US 11/30/2024 PATIENT IS ON CYCLE- LIGHT Encounter Details Date Type Department Care Team (Late st Contact Info) Description 11/30/2024 Telephone [facility] [address] [place] [address] Jeanine Galan, ROTARY DRUM TANNER [address] [place] [address] ABOUT APPOINTMENT AND US (PATIENT IS ON CYCLE- LIGHT) Social History Tobacco Use Types Packs/Day Years [...] on file documented as of this encounter Miscellaneous Notes * Telephone Encounter - Daysi Sneed RegSched Rep - 11/30/2024 8:40 AM EDT Provider: Hardeep Lee Caller: Mi Granda Relationship to Patient: Self Pharmacy: Reason for Call: PATIENT IS ON CYCLE -LIGHT When was the patient last seen: NEW GROVE WORKER PATIENT IS SCHEDULED FOR AN APPOINTMENT AND US AND HAS STARTED HER CYCLE SHE DID STATE THAT IT IS LIGHT PATIENT CAN BE REACHED AT [phone] I DID CALL THE OFFICE BEFORE SENDING MESSAGE THANK YOU documented in this encounter Plan of Treatment Upcoming Encounters Date Type Department Care Team (Late st Contact Info) Description 02/22/2025 1:30 PM EDT Office Visit [facility] [address] [place] [address] Jeanine Galan, ROTARY DRUM TANNER [address] [place] [id number] documented as of this encounter Visit Diagnoses Not on filedocumented in this encounter Care Teams Lamp Inspector Relationship Specialty Start Date End Date Geovanna Lynch MD PCP - General Family Medicine 06/28/21 documented as of this encounter
--- OUTSIDE RECORDS SUMMARY | 2025-01-22 17:43 | XMS_ITS | Clinical Summary ---
Author Organization [facility] Address [address] [place] [address] Phone Care Team Providers Care Technical Service Representative Name Role Phone Unavailable Primary Care Provider [...] Smear 2009 HPV/Pap Cotest 2018 COVID-19 Vaccine (1 - 2023-2 5 season) 2024 Influenza Vaccine (#1) 2025 Meningococcal B Vaccine Aged Out No l onger eligible based on patient's age to complete this topic Pneumococcal Vaccine 0-49 Aged Out No longer eligible based on patient's age to complete this topic Insurance [facility] [place] [address]
--- NOTE | 2025-01-22 18:03 | CT_ITS ---
PROCEDURE INFORMATION: Exam: CT Head Without Contrast Exam date and time: 01/22/2025 6:34 PM Age: 34 years old Clinical indication: Injury or trauma; Fall; Other: Pain; Additional info: Fall on ETOH TECHNIQUE: Imaging protocol: Computed tomography of the head without contrast. Radiation optimization: All CT scans at this facility use at least one of these dose optimization techniques: automated exposure control; mA and/or kV adjustment per patient size (includes targeted exams where dose is matched to clinical indication); or iterative reconstruction. COMPARISON: No relevant prior studies available. FINDINGS: Brain: No acute intracranial hemorrhage or mass effect. Noel-white matter differentiation is preserved. Periventricular white matter appears of lower density than would be expected for the patient's age. Cerebral ventricles: No ventriculomegaly. Paranasal sinuses: Visualized sinuses are unremarkable. No fluid levels. Mastoid air cells: Visualized mastoid air cells are well aerated. Nasal cavity: Leftward nasal septal deviation. Bones: Unremarkable. No acute fracture. Soft tissues: Mild right facial subcutaneous swelling. IMPRESSION: 1. No acute intracranial hemorrhage or mass effect. 2. Periventricular white matter appears of lower density than would be expected for the patient's age. This could be artifactual, though findings could also be related to chronic ETOH white matter related changes. Consider correlation with nonemergent brain MRI. 3. Mild right facial subcutaneous swelling.
--- NOTE | 2025-01-22 18:03 | CT_ITS ---
PROCEDURE INFORMATION: Exam: CT Maxillofacial Without Contrast Exam date and time: 01/22/2025 6:38 PM Age: 34 years old Clinical indication: Injury or trauma; Fall; Other: Pain; Additional info: Right cheek tenderness S/P fall TECHNIQUE: Imaging protocol: Computed tomography of the face without contrast. Radiation optimization: All CT scans at this facility use at least one of these dose optimization techniques: automated exposure control; mA and/or kV adjustment per patient size (includes targeted exams where dose is matched to clinical indication); or iterative reconstruction. COMPARISON: CT HEAD/BRAIN WO CON 01/22/2025 6:34 PM FINDINGS: Paranasal sinuses: Mild mucosal thickening of the bilateral maxillary sinuses, right ethmoid sinuses, and right frontal sinuses, favoring chronic sinusitis. Orbital cavities: Orbits are normal. Globes are unremarkable. Nasal cavity: Leftward nasal septal deviation (moderate). Bones: Mild irregularity to the left nasal bone. No other acute fracture or dislocation. Soft tissues: Subcutaneous right facial swelling. IMPRESSION: 1. Mild irregularity to the left nasal bone. Question acute or chronic fracture (possibly chronic). Consider correlation with point tenderness. 2. Subcutaneous right facial swelling. 3. No other acute findings.
[2025-01-22] MEDS: ACETAMINOPHEN 500MG TAB 1000 MG PO (18:43)
[2025-01-22] MEDS: OXYCODONE 5MG IMMEDIATE RELEASE TABLET 5 MG PO (18:43)
== END 2025-01-22 20:06 | disposition home or self-care (01) ==
PROVIDERS: Emergency Provider Student in an Organized Health Care Education/Training Program; PCP Family Medicine
DX: R51.9 Headache, unspecified (principal); R22.0 Localized swelling, mass and lump, head; F17.200 Nicotine dependence, unspecified, uncomplicated; W01.198A Fall on same level from slipping, tripping and stumbling with subsequent striking against other object, initial encounter
CPT/HCPCS: 70450; 70486; 99283; 99285